=== PATIENT | female | born 1970 | race Caucasian/White ===

== ENCOUNTER 2019-07-25 07:24 | Outpatient (CLI) | payer OTHER, SELFPAY ==
[2019-07-25 08:26] LABS: Basophils Absolute Auto 0.1 K/mm3 (0.0-0.1); Basophils Percent Auto 1.1 % (0.2-1.2); Eosinophils Absolute Auto 0.3 K/mm3 (0-0.3); Eosinophils Percent Auto 4.8 % (0-4.4); Hematocrit 45.3 % (37.0-47.0); Hemoglobin 14.5 g/dL (12.0-15.0); Immature Granulocyte Absolute 0.01 K/mm3 (0.00-0.031); Immature Granulocyte Percent A 0.2 % (0-0.5); Lymphocytes Absolute Auto 1.93 K/mm3 (0.9-3.2); Lymphocytes Percent Auto 34.2 % (18.3-44.2); Mean Corpuscular Hemoglobin 29.4 pg (26-34); Mean Corpuscular Volume 91.7 fl (80-100); Mean Platelet Volume 10.4 fl (7.4-10.4); Monocytes Absolute Auto 0.6 K/mm3 (0.1-0.6); Neutrophils Absolute Auto 2.8 K/mm3 (1.3-6.7); Neutrophils Percent Auto 48.7 % (45.5-73.1); Platelet Count Result 278 k/mm3 (150-375); Red Blood Count 4.94 M/mm3 (4.2-5.4); Red Cell Distribution Width 12.1 % (11.5-14.5); White Blood Count 5.6 K/mm3 (4.5-10.0)
[2019-07-25 08:47] LABS: Alanine Aminotransferase 22 U/L (4-35); Albumin Level 4.3 g/dL (3.5-5.1); Alkaline Phosphatase 101 U/L (38-126); Aspartate Amino Transferase 22 U/L (14-36); Bilirubin,Total 0.4 mg/dL (0.2-1.3); Blood Urea Nitrogen 11 mg/dL (7-17); Calcium 9.5 mg/dL (8.4-10.2); Carbon Dioxide 29 mmol/L (22-30); Chloride 101 mmol/L (98-107); Cholesterol 193 mg/dL (0-200); Estimated Glomerular Filt Rate > 60; Glucose 92 mg/dL (65-105); HDL Direct 48 mg/dL; Magnesium 2.1 mg/dL (1.6-2.3); Potassium 3.8 mmol/L (3.4-5.0); Sodium 139 mmol/L (137-145); Triglycerides 135 mg/dL (<150)
[2019-07-25 08:58] LABS: LDL Cholesterol Direct 117 mg/dL
[2019-07-25 09:15] LABS: Add Urine Microscopic? YES; Appearance Urine Cloudy (Clear); Bacteria Urine Trace /hpf; Bilirubin Urine Negative (Negative); Blood Urine 2+ (Negative); Color Urine Yellow (Yellow); Glucose Urine UA Negative (Negative); Ketones Urine Negative (Negative); Leukocyte Esterase Ur 3+ LEU/UL (Negative); Mucus Urine Rare /lpf; Nitrate Urine Negative (Negative); Protein Urine 1+ mg/dL (Negative); RBC Urine 21-50 /hpf (0-2); Specific Grav Ur 1.019 (1.001-1.035); Squamous Epithelial Cell Urine Many /hpf (Few); Urobilinogen Urine Negative mg/dL (<2.0)
[2019-07-25 09:59] LABS: Hemoglobin A1C 5.9 % (<5.7)
[2019-07-25 10:05] LABS: Vitamin D 25 Hydroxy 32.6 ng/mL
== END 2019-07-25 07:25 | disposition home or self-care (01) ==
PROVIDERS: PCP Family Medicine; Visit Provider Family Medicine
DX: Z00.00 Encounter for general adult medical examination without abnormal findings (principal); M62.830 Muscle spasm of back; E78.5 Hyperlipidemia, unspecified; E55.9 Vitamin D deficiency, unspecified
CPT/HCPCS: 36415; 80053; 80061; 81001; 82306; 83036; 83735; 84443; 85025

== ENCOUNTER 2019-10-25 07:33 | Outpatient (CLI) | payer OTHER, SELFPAY ==
[2019-10-25 08:36] LABS: Add Urine Microscopic? YES; Appearance Urine Cloudy (Clear); Bacteria Urine 1+ /hpf; Bilirubin Urine Negative (Negative); Blood Urine 1+ (Negative); Color Urine Yellow (Yellow); Glucose Urine UA Negative (Negative); Ketones Urine Negative (Negative); Leukocyte Esterase Ur 3+ LEU/UL (Negative); Mucus Urine Rare /lpf; Nitrate Urine Negative (Negative); Protein Urine 1+ mg/dL (Negative); RBC Urine 51-75 /hpf (0-2); Squamous Epithelial Cell Urine Many /hpf (Few); WBC Urine >75 /hpf
[2019-10-25 08:45] LABS: Cholesterol 196 mg/dL (0-200); HDL Direct 54 mg/dL; Triglycerides 144 mg/dL (<150)
[2019-10-25 08:56] LABS: LDL Cholesterol Direct 103 mg/dL
== END 2019-10-25 07:34 | disposition home or self-care (01) ==
PROVIDERS: PCP Family Medicine; Visit Provider Family Medicine
DX: R31.21 Asymptomatic microscopic hematuria (principal); E78.5 Hyperlipidemia, unspecified
CPT/HCPCS: 36415; 80061; 81001; 87086; 87088

== ENCOUNTER 2019-10-30 08:48 | Outpatient (CLI) | payer OTHER, SELFPAY ==
--- NOTE | ~2019-10-30 | XR_ITS ---
XR cervical spine 4-5V DATE: 10/30/2019 09:10 INDICATION: Neck pain, left shoulder pain. TECHNIQUE: AP, open-mouth, lateral, swimmer views COMPARISON: None FINDINGS: There is minimal levoscoliosis of the cervical spine. C1 and C2 are normally aligned and the odontoid process is intact. No fracture or dislocation or locked facet. No prevertebral soft tissue swelling. Cervical interspaces are relatively well preserved. Minimal anterior spurring at C4-5. Incidentally noted are radiopaque sutures of the left upper lung. IMPRESSION: Minimal levoscoliosis of the cervical spine Minimal degenerative change of the cervical spine. Reviewed, dictated and finalized at location A.
--- NOTE | ~2019-10-30 | XR_ITS ---
XR shoulder LT min 2V DATE: 10/30/2019 09:10 INDICATION: Left shoulder joint pain TECHNIQUE: 4 views COMPARISON: None FINDINGS: No fracture or dislocation, periosteal reaction or bone destruction or abnormal soft tissue calcification. Normal alignment at the acromioclavicular and glenohumeral joints. Right opaque sutures overlie the left apical and upper lung zone area. IMPRESSION: Negative left shoulder Reviewed, dictated and finalized at location A. IMPRESSION: Negative left shoulder
== END 2019-10-30 08:49 | disposition home or self-care (01) ==
LOC: ANHIMG 08:54
PROVIDERS: PCP Family Medicine; Visit Provider Family Medicine
DX: M54.2 Cervicalgia (principal); M25.512 Pain in left shoulder; M41.82 Other forms of scoliosis, cervical region
CPT/HCPCS: 72050; 73030

== ENCOUNTER 2020-01-13 07:17 | Outpatient (CLI) | payer OTHER, SELFPAY ==
[2020-01-13 08:22] LABS: Cholesterol 182 mg/dL (0-200); HDL Direct 53 mg/dL; Triglycerides 103 mg/dL (<150)
[2020-01-13 08:39] LABS: LDL Cholesterol Direct 92 mg/dL
== END 2020-01-13 07:18 | disposition home or self-care (01) ==
LOC: ANHLAB 07:18
PROVIDERS: PCP Family Medicine; Visit Provider Family Medicine
DX: E78.5 Hyperlipidemia, unspecified (principal)
CPT/HCPCS: 36415; 80061

== ENCOUNTER 2020-09-09 09:00 | Outpatient (CLI) | payer OTHER, SELFPAY ==
[2020-09-09 09:20] LABS: Basophils Absolute Auto 0.1 K/mm3 (0.0-0.1); Eosinophils Absolute Auto 0.3 K/mm3 (0-0.3); Eosinophils Percent Auto 3.7 % (0-4.4); Hematocrit 44.6 % (37.0-47.0); Hemoglobin 14.7 g/dL (12.0-15.0); Immature Granulocyte Absolute 0.01 K/mm3 (0.00-0.031); Immature Granulocyte Percent A 0.1 % (0-0.5); Lymphocytes Absolute Auto 1.71 K/mm3 (0.9-3.2); Lymphocytes Percent Auto 25.5 % (18.3-44.2); Mean Corpuscular Hemoglobin 29.2 pg (26-34); Mean Corpuscular Volume 88.7 fl (80-100); Mean Platelet Volume 9.8 fl (7.4-10.4); Monocytes Absolute Auto 0.6 K/mm3 (0.1-0.6); Monocytes Percent Auto 9.6 % (2.6-8.5); Neutrophils Percent Auto 60.1 % (45.5-73.1); Platelet Count Result 260 k/mm3 (150-375); Red Blood Count 5.03 M/mm3 (4.2-5.4); Red Cell Distribution Width 12.1 % (11.5-14.5); White Blood Count 6.7 K/mm3 (4.5-10.0)
[2020-09-09 09:35] LABS: Alanine Aminotransferase 18 U/L (4-35); Alkaline Phosphatase 90 U/L (38-126); Anion Gap 4 mmol/L (8-16); Aspartate Amino Transferase 19 U/L (14-36); Bilirubin,Total 0.4 mg/dL (0.2-1.3); Blood Urea Nitrogen 15 mg/dL (7-17); Carbon Dioxide 29 mmol/L (22-30); Chloride 104 mmol/L (98-107); Cholesterol 202 mg/dL (0-200); Estimated Glomerular Filt Rate 58; Glucose 100 mg/dL (65-105); HDL Direct 54 mg/dL; Magnesium 1.9 mg/dL (1.6-2.3); Potassium 4.1 mmol/L (3.4-5.0); Sodium 137 mmol/L (137-145); Triglycerides 112 mg/dL (<150)
[2020-09-09 09:46] LABS: LDL Cholesterol Direct 115 mg/dL
[2020-09-09 09:50] LABS: Hemoglobin A1C 5.4 % (<5.7)
[2020-09-09 09:54] LABS: Add Urine Microscopic? YES; Appearance Urine Clear (Clear); Bacteria Urine Trace /hpf; Bilirubin Urine Negative (Negative); Blood Urine Negative (Negative); Color Urine Yellow (Yellow); Glucose Urine UA Negative (Negative); Ketones Urine Negative (Negative); Leukocyte Esterase Ur 3+ LEU/UL (Negative); Nitrate Urine Negative (Negative); Protein Urine Negative (Negative); Specific Grav Ur 1.015 (1.001-1.035); Squamous Epithelial Cell Urine Moderate /hpf (Few); Urobilinogen Urine Negative mg/dL (<2.0); WBC Urine 31-50 /hpf
[2020-09-09 10:08] LABS: Vitamin D 25 Hydroxy 45.6 ng/mL
== END 2020-09-09 09:01 | disposition home or self-care (01) ==
PROVIDERS: PCP Family Medicine; Visit Provider Family Medicine
DX: Z13.9 Encounter for screening, unspecified (principal); M54.2 Cervicalgia; E66.9 Obesity, unspecified
CPT/HCPCS: 36415; 80053; 80061; 81001; 82306; 83036; 83735; 84443; 85025; 87086; 87088

== ENCOUNTER 2020-09-10 08:53 | Outpatient (CLI) | payer OTHER, SELFPAY ==
--- NOTE | ~2020-09-10 | MM_ITS ---
EXAMINATION: MM screening saul BI w samira HISTORY: Screening mammogram TECHNIQUE: Craniocaudal and mediolateral oblique 3-D tomosynthesis images were obtained and synthetic 2-D images were generated. CAD analysis was submitted and interpreted. COMPARISON: 06/05/2019, 06/01/2018 bilateral digital screening mammogram examinations BREAST PARENCHYMAL COMPOSITION: There are scattered areas of fibroglandular density. FINDINGS: There is no evidence of suspicious mass, calcification, or architectural distortion to sugg est malignancy in either breast. There has been no suspicious interval change. IMPRESSION: 1. No mammographic evidence of malignancy. 2. Recommend routine screening mammography in one year. BI-RADS Category 1: Negative Reviewed, dictated and finalized at location A. 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
== END 2020-09-10 08:54 | disposition home or self-care (01) ==
PROVIDERS: PCP Family Medicine; Visit Provider Family Medicine
DX: Z12.31 Encounter for screening mammogram for malignant neoplasm of breast (principal)
CPT/HCPCS: 77063; 77067

== ENCOUNTER 2020-12-23 08:17 | Outpatient (CLI) | payer OTHER, SELFPAY ==
[2020-12-23 09:14] LABS: Cholesterol 207 mg/dL (0-200); HDL Direct 61 mg/dL; Triglycerides 106 mg/dL (<150)
[2020-12-23 09:26] LABS: LDL Cholesterol Direct 99 mg/dL
== END 2020-12-23 08:18 | disposition home or self-care (01) ==
PROVIDERS: PCP Family Medicine; Visit Provider Family Medicine
DX: E78.5 Hyperlipidemia, unspecified (principal)
CPT/HCPCS: 36415; 80061

== ENCOUNTER 2021-08-22 09:25 | Emergency (ER) | payer OTHER, SELFPAY ==
--- NOTE | ~2021-08-22 | US_ITS ---
EXAMINATION: US venous doppler [facility] DATE: 08/22/2021 10:25 INDICATION: Left leg pain and swelling TECHNIQUE: Wasserman scale images without and with compression and Doppler images of the left lower extrem ity veins were obtained. COMPARISON: None FINDINGS: The left common femoral vein, profunda femoral vein, femoral vein, popliteal vein, peroneal trunk, posterior tibial veins, and greater saphenous vein are patent. There appear to be thrombosed superficial varicose veins at the area of clinical concern. IMPRESSION: 1. Patent left lower extremity veins. No evidence of deep venous thrombosis. 2. Likely thrombosed superficial varicose veins at the site of clinical concern. Reviewed, dictated and finalized at location A. 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 Patent left lower extremity veins. No evidence of deep venous thrombosis. 2. Likely thrombosed superficial varicose veins at the site of clinical concern .
[2021-08-22 09:28] VITALS: BP 171/91; PULSE 88; RESP 16; TEMP 36.2; O2SAT 100
--- NOTE | 2021-08-22 10:00 | PC.NURSE ---
pt. to US
[2021-08-22 11:30] VITALS: BP 128/87; PULSE 88; RESP 19; O2SAT 97
--- NOTE | 2021-08-22 11:34 | ED.EXTPRO ---
HPI - Extremity Problem General Chief complaint: Extremity Problem,Nontraumatic <Leanna Torres APRN - Last Filed: 08/22/21 11:47> Stated complaint: left behind the knee pain, vein redness <Leanna Torres APRN - Last Filed: 08/22/21 11:47> Time Seen by Provider: 08/22/21 09:32 <Leanna Torres APRN - Last Filed: 08/22/21 11:47> Source: patient <Leanna Torres APRN - Last Filed: 08/22/21 11:47> Mode of arrival: ambulatory <Leanna Torres APRN - Last Filed: 08/22/21 11:47> Limitations: no limitations <Leanna Torres APRN - Last Filed: 08/22/21 11:47> History of Present Illness HPI Narrative: 51 year old female presents with complaints of pain to left posterior knee, with swelling, and varicose veins. 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 Patient noted a few days ago that the pain in her legs did not go away after resting. Patient works long hours on her feet and is used to leg pain, but normally it goes away. Patient with concerns of a blood clot in her leg due to family history of blood clots. Patient has no history of blood clots, does not use hormones, has not had any recent long trips, does not need a sedentary lifestyle, but patient does smoke. <Leanna Torres APRN - Last Filed: 08/22/21 11:47> Related Data Home medications: Home Medications Medication Instructions Recorded Confirmed loratadine 10 mg capsule 10 mg PO DAILY 05/30/19 baclofen 10 mg PO DAILY PRN 06/22/19 <Leanna Torres APRN - Last Filed: 08/22/21 11:47> Allergies/Adverse reactions: Allergies Allergy/AdvReac Type Severity Reaction Status Date / Time No Known Allergies Allergy Unverified 06/22/19 01:16 <Leanna Torres APRN - Last Filed: 08/22/21 11:47> Review of Systems Constitutional: Constitutional: Reports as per HPI, Denies chills, Denies fatigue, Denies fever(s) and Denies weakness <Leanna Torres APRN - Last Filed: 08/22/21 11:47> Cardiovascular: Cardiovascular: Reports no additional cardiovascular complaints and Denies chest pain <Leanna Torres APRN - Last Filed: 08/22/21 11:47> Respiratory: Respiratory: Reports no additional respiratory complaints, Denies cough and Denies dyspnea <Leanna Torres APRN - Last Filed: 08/22/21 11:47> Musculoskeletal: Musculoskeletal: Reports as per HPI <Leanan Torres APRN - Last Filed: 08/22/21 11:47> PMF Past Medical History Medical History: Medical History (Updated 08/22/21 @ 11:38 by Leanna Torres APRN) Anemia Anxiety Arthritis COPD (chronic obstructive pulmonary disease) Depression Eczema Emphysema of lung HTN (hypertension) Hyperlipidemia Lung cancer Vitamin D deficiency disease <Leanna Torres APRN - Last Filed: 08/22/21 11:47> Surgical History Surgical History: Surgical History H/O tubal ligation History of cholecystectomy History of lung surgery lower left lobectomy Previous section x2 <Leanna Torres APRN - Last Filed: 08/22/21 11:47> Family History Family History: Family History (Updated 08/22/21 @ 11:39 by Leanna Torres APRN) Sibling Family history of lung cancer, Onset Age: 50 DVT (deep venous thrombosis) Mother Family history of chronic obstructive pulmonary disease Other Diabetes mellitus Hypertension <Leanna Torres APRN - Last Filed: 08/22/21 11:47> Social History Social History: Social History Smoking status: Heavy tobacco smoker Alcohol intake: current Gender identity (if verbalized by the patient): Female <Leanna Torres APRN - Last Filed: 08/22/21 11:47> Exam Const: General: no acute distress and alert <Leanna Torres APRN - Last Filed: 08/22/21 11:47> Orientation/consciousness: patient oriented x3 <Leanna Torres APRN - Last Filed: 02/18/22 11:47> HENMT: Head: normal to
== END 2021-08-22 11:30 | disposition home or self-care (01) ==
PROVIDERS: Emergency Provider Nurse Practitioner Family; PCP Family Medicine
DX: I80.02 Phlebitis and thrombophlebitis of superficial vessels of left lower extremity (principal); J43.9 Emphysema, unspecified; E78.5 Hyperlipidemia, unspecified; I10 Essential (primary) hypertension; M19.90 Unspecified osteoarthritis, unspecified site; E55.9 Vitamin D deficiency, unspecified; Z90.2 Acquired absence of lung [part of]; Z85.118 Personal history of other malignant neoplasm of bronchus and lung; F17.200 Nicotine dependence, unspecified, uncomplicated
CPT/HCPCS: 93971; 99284

== ENCOUNTER 2021-09-08 10:03 | Outpatient (CLI) | payer OTHER, SELFPAY ==
[2021-09-08 10:39] LABS: Basophils Absolute Auto 0.1 K/mm3 (0.0-0.1); Basophils Percent Auto 1.1 % (0.2-1.2); Eosinophils Absolute Auto 0.2 K/mm3 (0-0.3); Eosinophils Percent Auto 3.1 % (0-4.4); Hematocrit 46.3 % (37.0-47.0); Hemoglobin 14.8 g/dL (12.0-15.0); Immature Granulocyte Absolute 0.01 K/mm3 (0.00-0.031); Immature Granulocyte Percent A 0.2 % (0-0.5); Lymphocytes Absolute Auto 1.81 K/mm3 (0.9-3.2); Lymphocytes Percent Auto 29.5 % (18.3-44.2); Mean Corpuscular Hemoglobin 29.7 pg (26-34); Mean Platelet Volume 10.5 fl (7.4-10.4); Monocytes Absolute Auto 0.7 K/mm3 (0.1-0.6); Monocytes Percent Auto 11.4 % (2.6-8.5); Neutrophils Absolute Auto 3.4 K/mm3 (1.3-6.7); Neutrophils Percent Auto 54.7 % (45.5-73.1); Platelet Count Result 258 k/mm3 (150-375); Red Blood Count 4.98 M/mm3 (4.2-5.4); White Blood Count 6.1 K/mm3 (4.5-10.0)
[2021-09-08 10:44] LABS: Add Urine Microscopic? YES; Appearance Urine Cloudy (Clear); Bilirubin Urine Negative (Negative); Blood Urine Negative (Negative); Color Urine Yellow (Yellow); Glucose Urine UA Negative (Negative); Ketones Urine Negative (Negative); Leukocyte Esterase Ur 3+ LEU/UL (Negative); Mucus Urine Rare /lpf; Nitrate Urine Negative (Negative); Protein Urine Negative (Negative); Specific Grav Ur 1.016 (1.001-1.035); Squamous Epithelial Cell Urine Moderate /hpf (Few); Urobilinogen Urine Negative mg/dL (<2.0); WBC Urine 31-50 /hpf
[2021-09-08 10:48] LABS: Alanine Aminotransferase 15 U/L (4-35); Albumin Level 4.3 g/dL (3.5-5.1); Alkaline Phosphatase 101 U/L (38-126); Anion Gap 7 mmol/L (8-16); Aspartate Amino Transferase 21 U/L (14-36); Bilirubin,Total 0.5 mg/dL (0.2-1.3); Blood Urea Nitrogen 11 mg/dL (7-17); Carbon Dioxide 27 mmol/L (22-30); Chloride 104 mmol/L (98-107); Cholesterol 209 mg/dL (0-200); Estimated Glomerular Filt Rate > 60; Glucose 96 mg/dL (65-110); HDL Direct 54 mg/dL; Potassium 3.9 mmol/L (3.4-5.0); Sodium 138 mmol/L (137-145); Triglycerides 125 mg/dL (<150)
[2021-09-08 10:51] LABS: Hemoglobin A1C 5.2 % (<5.7)
[2021-09-08 10:59] LABS: LDL Cholesterol Direct 105 mg/dL
[2021-09-08 11:15] LABS: Vitamin D 25 Hydroxy 29.5 ng/mL
== END 2021-09-08 10:04 | disposition home or self-care (01) ==
LOC: ANHLAB 10:06
PROVIDERS: PCP Family Medicine; Visit Provider Family Medicine
DX: Z00.00 Encounter for general adult medical examination without abnormal findings (principal); M54.2 Cervicalgia; E66.9 Obesity, unspecified
CPT/HCPCS: 36415; 80053; 80061; 81001; 82306; 83036; 84443; 84550; 85025; 87086; 87088

== ENCOUNTER 2022-02-05 08:42 | Outpatient (CLI) | payer OTHER, SELFPAY ==
[2022-02-05 10:01] LABS: Cholesterol 159 mg/dL (0-200); HDL Direct 52 mg/dL; Triglycerides 82 mg/dL (<150)
[2022-02-05 10:12] LABS: LDL Cholesterol Direct 71 mg/dL
== END 2022-02-05 08:43 | disposition home or self-care (01) ==
LOC: ANHLAB 08:52
PROVIDERS: PCP Family Medicine; Visit Provider Family Medicine
DX: E78.5 Hyperlipidemia, unspecified (principal)
CPT/HCPCS: 36415; 80061

== ENCOUNTER 2023-09-16 08:29 | Outpatient (CLI) | payer OTHER, SELFPAY ==
[2023-09-16 09:07] LABS: Alanine Aminotransferase 16 U/L (6-35); Alkaline Phosphatase 83 U/L (38-126); Anion Gap 2 mmol/L (8-16); Aspartate Amino Transferase 22 U/L (14-36); Bilirubin,Total 0.7 mg/dL (0.2-1.3); Blood Urea Nitrogen 11 mg/dL (7-17); Calcium 9.1 mg/dL (8.4-10.2); Carbon Dioxide 29 mmol/L (22-30); Chloride 105 mmol/L (98-107); Cholesterol 156 mg/dL (0-200); Estimated Glomerular Filt Rate > 60; Glucose 91 mg/dL (65-110); HDL Direct 61 mg/dL; Potassium 3.7 mmol/L (3.4-5.0); Sodium 136 mmol/L (137-145); Triglycerides 79 mg/dL (<150)
[2023-09-16 09:18] LABS: LDL Cholesterol Direct 84 mg/dL
[2023-09-16 09:24] LABS: Basophils Absolute Auto 0.1 K/mm3 (0.0-0.1); Basophils Percent Auto 1.1 % (0.2-1.2); Eosinophils Absolute Auto 0.2 K/mm3 (0-0.3); Eosinophils Percent Auto 3.8 % (0-4.4); Hematocrit 46.3 % (37.0-47.0); Hemoglobin 14.7 g/dL (12.0-15.0); Immature Granulocyte Absolute 0.01 K/mm3 (0.00-0.031); Immature Granulocyte Percent A 0.2 % (0-0.5); Lymphocytes Absolute Auto 1.69 K/mm3 (0.9-3.2); Lymphocytes Percent Auto 30.5 % (18.3-44.2); Mean Corpuscular HGB Conc 31.7 g/dl (32-36); Mean Corpuscular Hemoglobin 29.5 pg (26-34); Mean Corpuscular Volume 92.8 fl (80-100); Mean Platelet Volume 10.1 fl (7.4-10.4); Monocytes Absolute Auto 0.6 K/mm3 (0.1-0.6); Monocytes Percent Auto 10.1 % (2.6-8.5); Neutrophils Percent Auto 54.3 % (45.5-73.1); Platelet Count Result 245 k/mm3 (150-375); Red Blood Count 4.99 M/mm3 (4.2-5.4); Red Cell Distribution Width 12.1 % (11.5-14.5); White Blood Count 5.6 K/mm3 (4.5-10.0)
== END 2023-09-16 08:30 | disposition home or self-care (01) ==
LOC: ANHLAB 08:30
PROVIDERS: PCP Family Medicine; Visit Provider Family Medicine
DX: I10 Essential (primary) hypertension (principal); E78.2 Mixed hyperlipidemia
CPT/HCPCS: 36415; 80053; 80061; 85025

== ENCOUNTER 2024-01-10 14:12 | Outpatient (CLI) | payer OTHER, SELFPAY ==
--- NOTE | ~2024-01-10 | MM_ITS ---
EXAMINATION: MM screening saul BI w samira HISTORY: Screening TECHNIQUE: Craniocaudal and mediolateral oblique 3-D tomosynthesis images were obtained and synthetic 2-D images were generated. CAD analysis was submitted and interpreted. COMPARISON: Comparison to multiple prior studies sequentially, with oldest reviewed study dated 05/06. BREAST PARENCHYMAL COMPOSITION: Not dense: There are scattered areas of fibroglandular density. FINDINGS: There is no evidence of suspicious mass, calcification, or architectural distortion to sugg est malignancy in either breast. There has been no suspicious interval change. IMPRESSION: 1. No mammographic evidence of malignancy. 2. Recommend routine screening mammography in one year. BI-RADS Category 1: Negative Reviewed, dictated and finalized at location B.
== END 2024-01-10 14:13 | disposition home or self-care (01) ==
LOC: ANHIMG 14:13
PROVIDERS: PCP Family Medicine; Visit Provider Family Medicine
DX: Z12.31 Encounter for screening mammogram for malignant neoplasm of breast (principal)
CPT/HCPCS: 77063; 77067

== ENCOUNTER 2025-01-17 09:39 | Outpatient (CLI) | payer OTHER, SELFPAY ==
--- OUTSIDE RECORDS SUMMARY | 2025-01-17 09:43 | XMS_ITS | Clinical Summary ---
Author Organization [facility] Address [address] [place] [address] Care Team Providers Care Patient Services Technician Name Role Phone Jarrell Cornejo MD Primary Care Provider [phone] Allergies No known active allergies Medications lisinopril (PRINIVIL,ZESTRI L) 20 mg tablet Take 20 mg by mouth daily Active Active Problems No known active problems Encounters Date Type Department Care Team Description 11/29/2024 Orders Only [facility] Surgery [address] [facility] [address] [place] [id number] Carroll Salcido MD Lung nodule (Primary Dx) from Last 3 Months Family History Medical History Relation Name Comments COPD Mother Family history of chronic obstructive pulmonary disease - (Added by TW Conv) Heart failure Mother Family history of congestive heart failure - (Added by TW Conv) Relation Name Status Comments Mother Social History Tobacco Use Types Packs/Day Years Used Date Smoking Tobacco: Every Day Personal Safety Answer Date Recorded Getting School Help Needed Not on file 09/03 Comments Unknown Sex and Gender Information Value Date Recorded Sex Assigned at Not on file 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 Gender Identity Not on file Sexual Orientation Not on file Obstetrics History Last Filed Vital Signs Vital Sign Reading Time Taken Comments Blood Pressure 138/91 02/01/2024 12:05 PM CDT Pulse 80 02/01/2024 12:05 PM CDT Temperature 36.7 C (98 F) 07/30/2020 2:47 PM 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 Respiratory Rate 14 02/01/2024 12:05 PM CDT Oxygen Saturation 96% 02/01/2024 12:05 PM CDT Inhaled Oxygen Concentration - - Weight 104.3 kg (230 lb) 02/01/2024 12:05 PM CDT Height 170.2 cm (5' 7) 02/01/2024 12:05 PM CDT Body Mass Index 36.02 02/01/2024 12:05 PM CDT Plan of Treatment Health Maintenance Due Date Last Done Comments Breast Cancer Screening-Mammogram 1968 Cervical Cancer Screening 1968 Colon Cancer Screening-Colonoscopy 1968 Depression Screening 1968 Hepatitis C Screening 1968 Hepatitis B Screening 1986 Regular Well Visit/Exam 18-64 1986 Pneumococcal vaccine <65 (1 of 2 - PCV) 1987 Zoster Vaccine (1 of 2) 2018 Influenza Vaccine (Season Ended) 2025 04/06/2019, 04/29/2018, 04/22/2017, Additional history exists DTaP/Tdap/Td Vaccine (2 - Td or Tdap) 07/17/2029 07/17/2019 Insurance [facility] [employer] [facility] CIGNA CIGNA OPEN ACCESS CIGNA Care Teams Patient Services Technician Relationship Specialty Start Date End Date Jarrell Cornejo MD [address] [place] [address] PCP - General 01/30/20
--- OUTSIDE RECORDS SUMMARY | 2025-01-17 09:43 | XMS_ITS | Clinical Summary ---
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 Name Role Phone Unavailable Primary Care Provider Unavailabl e Social History Tobacco Use Types Packs/Day Years Used Date Smoking Tobacco: Never Assessed Comments Unknown Sex and Gender Information Value Date Recorded Sex Assigned at Not on file Legal Sex Female 11:57 AM CDT Gender Identity Not on file Sexual Orientation Not on file Plan of Treatment Health Maintenance Due Date Last Done Comments DTAP/TDAP/TD VACCINES (1 - Tdap) 1987 HEPATITIS B VACCINES (1 of 3 - 19+ 3-dose series) 08/1986 HPV/Cotest (21-29) 1989 CERVICAL CANCER SCREENING 1998 HPV/Cotest (30-65) 1998 PAP SMEAR 1998 BREAST CANCER SCREENING 2008 COLORECTAL SCREENING 2013 Colorectal Cancer Screening 2013 FIT-DNA Q 3 years 2013 FIT/FOBT Q 1 year 2013 Flex Sig/CT Colonography Q 5 years 2013 ZOSTER VACCINE (1 of 2) 2018 INFLUENZA VACCINE (#1) 2025
--- OUTSIDE RECORDS SUMMARY | 2025-01-17 09:43 | XMS_ITS | Data Portability ---
Author Organization ARNULFO JUAN JOSÉAlden Cortes Address [address] [place] [address] Assessment No assessment recorded. Plan of Treatment Reminders Order Date Submit Date Provider Last Modified By Organization Details Last Modified Time Details Appointments None recorded. Lab TSH + free T4, serum 2017 018 [facility], [address] [facility] [address], [place], [address], 8 17:25:57 HbA1c (hemoglobi n A1c), blood 2017 018 [facility], [address] [facility] [address], [place], [address], 8 17:25:57 vitamin D, 25-hydroxy , total, serum 2017 018 [facility], [address] [facility] [address], [place], [address], 8 17:25:57 CMP, serum or plasma 2017 018 [email or web address], [address] [facility] [address], [place], [address], 8 14:30:43 lipid panel, serum 2017 018 [facility]AL [facility], [address] [facility] [address], [place], [address], 8 09:53:39 CK (creatine kinase), total, serum 2017 018 [facility], [address] [facility], [address], [place], [address], 8 09:53:37 culture, urine 2016 017 [facility], [address] [facility], [address], [place], [address], 7 06:39:57 urinalysis , dipstick 2016 017 [email or web address] In-Office Order, Internal Use Only DO Not Attach Compendium DO Not Attach Compendium, Do Not Delete/merge, [id number] 7 11:54:24 Referral physical therapist referral - gave patient a copy of referral. no need a referral at this time. Thank you. 2016 017 [email or web address] [facility], [address] [place], [address], 7 09:53:25 Procedures None recorded. Surgeries None recorded. Imaging CT, kidney, w/o contrast 2016 017 [facility], [address] [place] [address] [address], [address], 7 17:47:00 Medication Orders ibuprofen 800 mg tablet 2017 018 INTERFACE [facility], [address] [facility], [place], [address], 8 09:54:08 promethazi ne-DM 6.25 mg-15 mg/5 mL oral syrup 2017 018 INTERFACE [facility], [address] [facility], [place], [address], 8 09:53:36 azithromyc in 250 mg tablet 2017 018 [facility], [address] [place], [address], 8 09:53:35 Flovent HFA 110 mcg/actuat ion aerosol inhaler 2017 018 [facility], [address] [place], [address], 8 12:41:56 azithromyc in 250 mg tablet 2017 018 [facility], [address] [place], [address], 8 12:40:32 promethazi ne-DM 6.25 mg-15 mg/5 mL oral syrup 2017 018 [facility], [address] [place], [address], 8 12:41:09 loratadine 10 mg tablet 2016 017 [facility], [address] [place], [address], 7 11:28:33 trazodone 50 mg tablet 2016 017 [facility], [address] [place], [address], 7 11:28:34 lisinopril 20 mg tablet 2016 017 [facility], [address] [place], [address], 7 11:28:35 pravastati n 40 mg tablet 2016 017 [facility], [address] [place], [address], 7 11:28:34 ciprofloxa michael 500 mg tablet 2016 017 INTERFACE [facility], [address] [place], [address], 7 11:54:57 phenazopyr idine 200 mg tablet 2016 017 INTERFACE [facility] [address], [address] [place], [address], 7 11:55:45 trazodone 50 mg tablet 2016 017 INTERFACE [facility] [address], [address] [place], [address], 7 15:44:05 diclofenac 1 % topical gel 2016 017 [email or web address] [facility] [address], [address] [place], [address], 7 12:33:05 baclofen 10 mg tablet 2016 017 [facility] [address], [address] [place], [address], 7 09:54:18 triamcinol one acetonide 0.1 % topical ointment 2016 017 [facility], [address] [place], [address], 7 14:10:07 Patient TargetsNo targets recorded. Patient InstructionsNo instructions recorded. Reason for Referral gave patient a copy of refer ral. no need a referral at this time. Thank you. Referring Physician: Edwin Lee, Family Medicine, Encounter Date: 12/31/2016 Results Created Date Observation Date Name Description Value Unit Range Abnormal Flag Note LastModifiedBy Organization Detail LastModifiedTime 03/04/20 17 03/04/2017 urina lysis , dipst ick Leukocytes Trace Not Available In-Offi ce Order Internal Use Only DO Not Attach Compendium DO Not Attach Compendium, Do Not Delete/merge, [id number] 03/04/2017 11:36:34 03/04/2003/04/2017 urina lysis , dipst ick Nitrite negati ve Not Available In-Office Order Internal Use Only DO Not Attach Compendium DO Not Attach Compendium, Do Not Delete/merge, [id number] 03/04/2017 11:36:34 03/04/2003/04/2017 urina lysis , dipst ick Urobilinogen .2 Not Available In-Of fice Order Internal Use Only DO Not Attach Compendium DO Not Attach Compendium, Do Not Delete/merge, [facility] 03/04/2017 11:36:34 03/04/2003/04/2017 urina lysis , dipst ick Protein Negati ve Not Available In-Office Order Internal Use Only DO Not Attach Compendium DO Not Attach Compendium, Do Not Delete/merge, [id number] 03/04/2017 11:36:34 03/04/2003/04/2017 urina lysis , dipst ick pH 5.5 Not Available In-Office Order Internal Use Only DO Not Attach Compendium DO Not Attach Compendium, Do Not Delete/merge, [facility] 03/04/2017 11:36:34 03/04/2003/04/2017 urina lysis , dipst ick Blood Negati ve Not Available In-Office Order Internal Use Only DO Not Attach Compendium DO Not Attach Compendium, Do Not Delete/merge, [facility] 03/04/2017 11:36:34 03/04/2003/04/2017 urina lysis , dipst ick Specific [place] 1.015 Not Available In-Off ice Order Internal Use Only DO Not Attach Compendium DO Not Attach Compendium, Do Not Delete/merge, [facility] 03/04/2017 11:36:34 03/04/2003/04/2017 urina lysis , dipst ick Ketone Negati ve Not Available In-Office Order Internal Use Only DO Not Attach Compendium DO Not Attach Compendium, Do Not Delete/merge, [id number] 03/04/2017 11:36:34 03/04/2003/04/2017 urina lysis , dipst ick Bilirubin Negati ve Not Available In-Office Order Internal Use Only DO Not Attach Compendium DO Not Attach Compendium, Do Not Delete/merge, [id number] 03/04/2017 11:36:34 03/04/20 17 03/04/2017 urina lysis , dipst ick Glucose Negati ve Not Available In-Office Order Internal Use Only DO Not Attach Compendium DO Not Attach Compendium, Do Not Delete/merge, [id number] 03/04/2017 11:36:34 03/04/20 17 03/04/2017 urina lysis , dipst ick Appearance Clear Not Available In-Offi ce Order Internal Use Only DO Not Attach Compendium DO Not Attach Compendium, Do Not Delete/merge, [id number] 03/04/2017 11:36:34 03/04/20 17 03/04/2017 urina lysis , dipst ick Color Yellow Not Available In-Office Order Internal Use Only DO Not Attach Compendium DO Not Attach Compendium, Do Not Delete/merge, [id number] 03/04/2017 11:36:34 03/04/20 17 03/06/2017 cultu re, urine urine culture,comp rehensive FINAL REPORT Not Available [facility] ([facility]) [address], [place], [place], [address], 03/07/2017 06:39:57 03/04/20 17 03/06/2017 cultu re, urine result 1 COMMEN T MIXED UROGE NITAL CYNTHIA 25,00 0-50, 000 COLON Y FORMI NG UNITS PER ML Not Available [facility] ([facility]) [address], [place], [place], [address], 03/07/2017 06:39:57 02/26/20 17 [place], gallb ladde r No observ ation record ed. [email or web address] Not Available 02/03 20:37:55 03/22/[address], abdom en + pelvi s, w/ contr ast No observ ation record ed. [email or web address] Not Available 03/05 21:15:52 Result Notes None recorded. Problems Name Problem SNOMED Code Status Onset Date Resolution Date Notes Provider Name and Address Organization Details Recorded Time Acute bronchitis 92465000 Active 2017 Edmónica Lee PA-C Attn: Alana g,[address] [facility], [place], [place], [address] [place] [address] 2, [place] - [facility] 8 12:40:01 Numbness of finger 976971140 Active Edwin Lee PA-C Attn: Accountin g,[address] [facility], [place], [place], [address] [place] [address], [place] [facility] 5 15:39:53 Obesity 896732328 Active Edwin Lee PA-C Attn: Accountin g,[address] [facility], [place], [address] [place] [address], [place] [facility] 6 12:49:59 Vitamin D deficiency 19476669 Active Edwin Lee PA-C Attn: Accountin g,[address] [facility], [place], [place], [address] [place] [address] 2, [facility] - [facility] 6 12:49:59 Tobacco user 782921403 Active Edwin Lee PA-C Attn: Accountin g,[address] [facility], [place], [place], [address] [place] [address], [place] [facility] 6 12:49:59 Hyperlipide lobo 67703118 Active Edwin Lee PA-C Attn: Accountin g,[address] [facility], [place], [place], [address] [place] [address], [place] [facility] 6 12:49:59 Anemia 555394518 Active Edwin Lee PA-C Attn: Accountin g,[address] [facility], [place], [place], [address] [place] [address], [place] [facility] 6 12:49:59 Acute urinary tract infection 231774328 Active Edwin Lee PA-C Attn: Accountin g,[address] [facility], [place], [place], [address] [place] [address] 2, [place] [facility] 5 20:54:30 Anxiety 23826138 Active Edwin Lee PA-C Attn: Accountin g,[address] [facility], [place], [place], [address] [place] [address], [place] [facility] 6 12:49:59 Panic disorder 665330589 Active Edwin Lee PA-C Attn: Accountwiliam g,[address] [place], [address], [place] - [facility] 6 10:37:09 Pneumonia 440128252 Active Lisette Ledezma LPN null, [place] [facility] 5 13:48:35 Low back pain 327274805 Active Edwin Lee PA-C Attn: Accountin g,[address] [place], [address], [place] [facility] 6 12:49:59 Essential hypertensio n 97534108 Active Edwin Lee PA-C Attn: Accountwiliam g,[address] [place], [address], [place] [facility] 6 12:49:59 Lung mass 639881908 Active Kamilla Spencer MD Attn: Accountin g,[address] [place], [address], [place] [facility] 5 13:20:12 Chronic obstructive pulmonary disease 07817966 Active Edwin Lee PA-C Attn: Accountwiliam g,[address] [place], [address], [place] [facility] 6 12:49:59 Upper respiratory infection 55261766 Active 2016 Edwin Lee PA-C Attn: Accountwiliam g,[address] [place], [address], [place] [facility] 7 12:06:42 Acute otitis media 9743311 Active 2016 Edwin Lee PA-C Attn: Accountwiliam g,[address] [place], [address], [place] [facility] 7 10:01:32 Acute pharyngitis 877260634 Active 2016 Edwin Lee PA-C Attn: Accountwiliam g,[address] [place], [address], [place] [facility] 7 10:01:47 Allergic rhinitis 67664224 Active 2016 Edwin Lee PA-C Attn: Alana ruiz,[address] [place], [address], [place] [facility] 7 10:03:42 Strain of right trapezius muscle 9068257987752 9100 Active 2016 Edwin Lee PA-C Attn: Alana ruiz,[address] [place], [address], [place] [facility] 7 09:52:41 Eczema 30616931 Active 2016 Edwin Lee PA-C Attn: Alana ruiz,[address] [place], [address], [place] [facility] 7 09:57:59 Right flank pain 115673023 Active 2016 Edwin Lee PA-C Attn: Alana ruiz,[address] [place], [address], [place] [facility] 7 11:36:21 Insomnia 749180335 Active 2016 Edwin Lee PA-C Attn: Alana ruiz,[address] [place], [address], [place] [facility] 7 11:39:47 Administrat ion of influenza vaccine Active 2016 Edwin Lee PA-C Attn: Alana ruiz,[address] [place], [address], [place] [facility] 7 11:23:03 Problem Notes None recorded. Medical Equipment None Reported. Allergies No known drug allergies Medications Name Sig Start Date Stop Date Status Note LastModified by Organization Details LastModified Time cyclobenzapr ine 10 mg tablet Take 1 tablet every day by oral route at bedtime for 30 days. 2015 active Not Available Not Available Not Avai lable amoxicillin 500 mg capsule active Not Available Not Available Not Available buspirone 5 mg tablet Take 1 tablet twice a day by oral route after meals for 30 days. 2014 active Not Available Not Available Not Avai lable Qvar 80 mcg/actuatio n Metered Aerosol oral inhaler Inhale 2 puffs twice a day by inhalation route as needed for 30 days. 2017 active Not Available Not Available Not Avai lable promethazine -DM 6.25 mg-15 mg/5 mL oral syrup Take 5 mL every 6 hours by oral route as needed for 10 days. active Not Available Not Available No t Available Colace 100 mg capsule Take 1 capsule twice a day by oral route as needed. 2014 active Not Available Not Available Not Avai lable trazodone 50 mg tablet Take 1 tablet as needed by oral route at bedtime for 30 days. 2016 active Not Available Not Available Not Avai lable azithromycin 250 mg tablet TAKE 2 TABLETS (500 MG) BY ORAL ROUTE ONCE DAILY FOR 1 DAY THEN 1 TABLET (250 MG) BY ORAL ROUTE ONCE DAILY FOR 4 DAYS active Not Available Not Available No t Available pravastatin 40 mg tablet TAKE 1 TABLET BY MOUTH ONCE DAILY AT SUPPER 2017 active Not Available Not Available Not Avai lable ibuprofen 800 mg tablet Take 1 tablet 3 times a day by oral route as needed for 30 days. active Not Available Not Available No t Available hydrocodone 5 mg-acetamino phen 325 mg tablet active Not Available Not Available Not Available phenazopyrid ine 200 mg tablet Take 1 tablet 3 times a day by oral route for 2 days. active Not Available Not Available No t Available lisinopril 20 mg tablet TAKE ONE TABLET BY MOUTH ONCE DAILY active Not Available Not Available No t Available ciprofloxaci n 500 mg tablet Take 1 tablet every 12 hours by oral route for 10 days. active Not Available Not Available No t Available amoxicillin 500 mg tablet Take 2 tablets every 12 hours by oral route for 10 days. 2016 active Not Available Not Available Not Avai lable ketorolac 10 mg tablet active Not Available Not Available No t Available oxycodone-ac etaminophen 5 mg-325 mg tablet active Not Available Not Available Not Available amoxicillin 875 mg tablet active Not Available Not Available Not Available alprazolam 0.25 mg tablet active Not Available Not Available Not Available famotidine 20 mg tablet active Not Available Not Available Not Available baclofen 10 mg tablet TAKE ONE TABLET BY MOUTH THREE TIMES DAILY NEEDED DISCONTINUE THE CYCLOBENZAP RINE FOR NOW 08/29/ 2018 active Not Available Not Available Not Avai lable ferrous sulfate 325 mg (65 mg iron) tablet TAKE ONE TABLET BY MOUTH TWICE DAILY WITH MEALS active Not Available Not Available No t Available triamcinolon e acetonide 0.1 % topical ointment APPLY A THIN LAYER TO THE AFFECTED AREA(S) BY TOPICAL ROUTE 2 TIMES PER DAY active Not Available Not Available No t Available nicotine 21 mg/24 hr daily transdermal patch Apply 1 patch every day by transdermal route for 30 days. active Not Available Not Available No t Available gabapentin 300 mg capsule TAKE 3 CAPSULES BY MOUTH EVERY NIGHT AT BEDTIME active Not Available Not Available No t Available Proventil HFA 90 mcg/actuatio n aerosol inhaler active Not Available Not Available Not Available ibuprofen 600 mg tablet active Not Available Not Available Not Available levofloxacin 750 mg tablet Take 1 tablet every day by oral route for 10 days. active Not Available Not Available No t Available fluticasone propionate 50 mcg/actuatio n nasal spray,suspen jarred [place] 1 spray twice a day by intranasal route for 30 days. active Not Available Not Available No t Available lisinopril 2.5 mg tablet 1 tab po qd active Not Available Not Available Not Available azithromycin 500 mg tablet Take 1 tablet every day by oral route for 5 days. active Not Available Not Available No t Available Allergy Relief (loratadine) 10 mg tablet TAKE ONE TABLET BY MOUTH ONCE DAILY IN THE MORNING 2017 active Not Available Not Available Not Avai lable nitrofuranto in monohydrate/ macrocrystal s 100 mg capsule active Not Available Not Available Not Available Flovent HFA 110 mcg/actuatio n aerosol inhaler 2017 active Not Available Not Available Not Avai lable diclofenac 1 % topical gel APPLY 2 GRAM TO THE AFFECTED AREA(S) BY TOPICAL ROUTE 4 TIMES PER DAY active Not Available Not Available No t Available Anoro Ellipta 62.5 mcg-25 mcg/actuatio n powder for inhalation Inhale 1 inhalation by inhalation route in the morning. 2016 active Not Available Not Available Not Avai lable Vitals Date Recorded Body height Body mass index (BMI) Body weight Oxygen saturation Oxygen saturation in Arterial blood by Pulse oximetry Heart rate Body temperature Systolic And Diastolic Provider Name and Address Organization Details Last Updated DateTime 8 168.91 cm 38 kg/m2 629922. 58 g 97 % 97 % 88 /min 98.3 [degF] 128/66 mm[Hg] Katrin ANDREI Bourgeois [facility] 8 12:25:22 Date Recorded Body height Body mass index (BMI) Body weight Oxygen saturation Oxygen saturation in Arterial blood by Pulse oximetry Heart rate Body temperature Systolic And Diastolic Provider Name and Address Organization Details Last Updated DateTime 8 168.91 cm 37.3 kg/m2 696088. 41 g 95 % 95 % 104 /min 97.9 [degF] 124/80 mm[Hg] Che Delgado MA [facility] 8 09:37:42 Date Recorded Body height Body mass index (BMI) Body weight Oxygen saturation Oxygen saturation in Arterial blood by Pulse oximetry Heart rate Body temperature Systolic And Diastolic Provider Name and Address Organization Details Last Updated DateTime 7 168.91 cm 37.4 kg/m2 101847. 01 g 97 % 97 % 74 /min 98.6 [degF] 126/82 mm[Hg] Che Delgado MA [facility] 7 09:41:19 Date Recorded Body height Body mass index (BMI) Body weight Oxygen saturation Oxygen saturation in Arterial blood by Pulse oximetry Heart rate Body temperature Systolic And Diastolic Provider Name and Address Organization Details Last Updated DateTime 7 168.91 cm 37.6 kg/m2 197535. 99 g 97 % 97 % 76 /min 98 [degF] 114/70 mm[Hg] Che Delgado MA [facility] 7 11:18:09 Date Recorded Body height Body mass index (BMI) Body weight Oxygen saturation Oxygen saturation in Arterial blood by Pulse oximetry Heart rate Body temperature Systolic And Diastolic Provider Name and Address Organization Details Last Updated DateTime 7 168.91 cm 38.6 kg/m2 535711. 95 g 97 % 97 % 77 /min 98 [degF] 110/84 mm[Hg] Che Delgado MA [facility] 7 11:11:38 Social History Question Answer Notes LastModified by Organizat ion Details LastModified Time Tobacco Smoking Status Current Every Day Smoker cigarettes -- pack a day ANDREI Trejo, [facility] 10/04/2014 15:22:18 How Many Years Have You Smoked Tobacco? 30 [email or web address] Information not available 10/04/2014 Sex: Unknown Functional Status None recorded. Mental Status None recorded. Family History Relationship Description Onset Age of this Age Resolved Age Notes LastModified by Organization Details LastModified Time Father Diabetes mellitus 63 cirrho sis [email or web address] Not available 10/01/2015 10:39:33 Mother Hypertensive disorder 70 chf, kidney failur e [email or web address] Not available 10/01/2015 10:39:33 Medical History No medical history recorded. Gynecological HistoryNo gynecological history recorded. Obstetrics History GPAL:G 0 P 0 0 0 0 Immunizations Vaccine Type Date Status Note Provider Nam e and Address Organization Details Recorded Time Influenza, split virus, quadrivalent, preservative 6 completed Not Available [facility] 07/22/2019 02:48:36 Influenza, split virus, quadrivalent, preservative 7 completed Not Available [facility] 07/22/2019 02:34:24 Influenza, split virus, quadrivalent, preservative 5 completed Not Available [facility] 07/22/2019 02:32:10 Past Encounters Encounter ID Performer Location Encounter Start Date Encounter Closed Date Diagnosis/Indication Diagnosis SNOMED-CT Code Diagnosis ICD10 Code Diagnosis Note [id number] KELECHI Betancourt (Adult Med) [address] [place] [id number] 10/04/2014 15:07:56 10/04/2014 15:43:41 Numbness of finger 201427093 Obesity 965257969 Vitamin D deficiency 84494208 Tobacco user 330185556 Hyperlipidemia 61473227 Anemia 925515602 [id number] KELECHI Betancourt (Adult Med) [address] [place] [id number] 12/06/2014 10:04:38 12/06/2014 11:00:42 Acute urinary tract infection 144850178 Hyperlipidemia 96672543 Obesity 617712537 Tobacco user 237367424 Vitamin D deficiency 56232350 Anxiety 55364854 Panic disorder 592422392 [id number] KELECHI Betancourt (Adult Med) [address] [place] [phone] 01/31/2015 12:12:49 01/31/2015 17:25:30 Pneumonia 631758631 Low back pain 404298572 [id number] [facility] [address] [place] [id number] 03/07/2015 10:06:51 03/07/2015 11:01:48 Anemia 579700731 Anxiety 99624378 Hyperlipidemia 28157350 Low back pain 488280785 Pneumonia 529979982 Tobacco user 337747181 Vitamin D deficiency 44937461 Essential hypertension 66692237 [id number] MD Stanislav Kumar (Adult Med) [address] [place] [id number] 05/07/2015 09:47:15 05/08/2015 13:55:25 Administration of influenza vaccine 69512878 Z23 Essential hypertension 19845081 I10 Hyperlipidemia 87231432 E78.5 Low back pain 854868824 M54.5 Obesity 281337378 E66.9 Panic disorder 078206946 F41.0 Tobacco user 809944724 Z 72.0 Vitamin D deficiency 347 72736 E55.9 [id number] KELECHI Betancourt (Adult Med) [address] [place] [id number] 10/01/2015 09:45:04 10/01/2015 10:43:18 Chronic obstructive pulmonary disease 62057827 J44.9 Essential hypertension 61380716 I10 Hyperlipidemia 54161418 E78.5 Low back pain 018038464 M54.5 Obesity 051220732 E66.9 Panic disorder 563446684 F41.0 Tobacco user 485318150 Z 72.0 Vitamin D deficiency 347 55522 E55.9 [id number] MD Stanislav Kumar (Adult Med) [address] [place] [id number] 12/30/2015 09:34:42 12/30/2015 10:16:08 Chronic obstructive pulmonary disease 50255492 J44.9 Diabetes m ellitus screening 703433619 Z13.1 Vitamin D deficiency 347 82749 E55.9 Anemia 097155620 D64.9 Hyperlipidemia 52968291 E78.5 Low back pain 725224331 M54.5 [id number] MD Stanislav Kumar (Adult Med) [address] [place] [id number] 03/13/2016 11:43:21 03/13/2016 13:02:45 Anemia 400313216 D64.9 Anxiety 51541317 F41.9 Chronic ob structive pulmonary disease 31483100 J44.9 Diabetes m ellitus screening 536609395 Z13.1 Essential hypertension 30437141 I10 Hyperlipidemia 56895329 E78.5 Low back pain 308097618 M54.5 Obesity 647387098 E66.9 Tobacco user 272502861 Z 72.0 Vitamin D deficiency 347 98536 E55.9 Administra tion of influenza vaccine 12627818 Z23 [id number] MD Stanislav Kumar (Adult Med) [address] [place] [id number] 07/31/2016 09:47:12 07/31/2016 10:25:36 Essential hypertension 64039621 I10 Hyperlipidemia 84150637 E78.5 Anxiety 39995941 F41.9 Obesity 147047696 E66.9 Panic disorder 491669791 F41.0 Vitamin D deficiency 347 40356 E55.9 Tobacco user 842845780 Z 72.0 Upper resp iratory infection 64538926 J06.9 nearly resolved [id number] [facility] [address] [place] [id number] 09/30/2016 09:29:07 09/30/2016 10:09:03 Tobacco user 748347111 Z72.0 Chronic ob structive pulmonary disease 71311688 J44.9 Anemia 792087016 D64.9 Low back pain 640447675 M54.5 Vitamin D deficiency 347 35135 E55.9 Obesity 526549406 E66.9 Hyperlipidemia 51346423 E78.5 Essential hypertension 92744667 I10 Acute otitis media 39928 03 H66.92 Allergic rhinitis 168847 04 J30.9 [id number] MD Stanislav Kumar (Adult Med) [address] [place] [id number] 12/31/2016 09:30:50 12/31/2016 10:03:26 Strain of right trapezius muscle 6765181938 2242377 S29.012A Eczema 29008325 L30.9 left ortiz Tobacco user 588446094 Z 72.0 Chronic ob structive pulmonary disease 10274503 J44.9 Anemia 234075766 D64.9 Low back pain 889457636 M54.5 Vitamin D deficiency 347 79055 E55.9 Obesity 128124256 E66.9 Anxiety 39710516 F41.9 Hyperlipidemia 05313692 E78.5 [id number] Kamilla Spencer [facility] ([facility] [address] [place] [id number] 03/04/2017 11:00:28 03/04/2017 12:00:54 Right flank pain 070914177 R10.9 Low back pain 137021412 M54.5 Hyperlipidemia 90528049 E78.5 Insomnia 386551887 G47.0 0 Acute urin rebecca tract infection [id number] N39.0 Allergic rhinitis [id number] 04 J30.9 Tobacco user [id number] Z 72.0 Chronic ob structive pulmonary disease 63327885 J44.9 Panic disorder [id number] F41.0 Obesity 992698809 E66.9 Essential hypertension 63544040 I10 [id number] Kamilla Spencer MD [facility] (Adult Med) [address] [place] [phone] 04/22/2017 10:54:21 04/22/2017 11:41:46 Insomnia 742787967 G47.00 Eczema 06361828 L30.9 left ortiz Tobacco user 098484116 Z 72.0 Chronic ob structive pulmonary disease 42751998 J44.9 Low back pain 767314724 M54.5 Hyperlipidemia 58498598 E78.5 Essential hypertension 78877388 I10 Obesity 027829358 E66.9 Vitamin D deficiency 347 00555 E55.9 Administra tion of influenza vaccine 26890030 Z23 Allergic rhinitis 883214 04 J30.9 [id number] MD Stanislav Kumar (Adult Med) [address] [place] [phone] 07/16/2017 11:19:19 07/16/2017 12:45:23 Acute bronchitis 36752259 J20.9 Chronic ob structive pulmonary disease 11066876 J44.9 [id number] Kamilla Spencer MD [facility] (Adult Med) [address] [place] [phone] 11/04/2017 09:24:04 11/04/2017 09:59:19 Acute bronchitis 71357378 J20.9 Chronic ob structive pulmonary disease 58468379 J44.9 Low back pain 948896258 M54.5 Vitamin D deficiency 347 40029 E55.9 Obesity 624869298 E66.9 Hyperlipidemia 52024140 E78.5 Essential hypertension 77410729 I10 Health Concerns Section Related Observation LastModified by Organization Detai ls LastModified Time None Recorded Concern Status LastModified by Organization Details LastModified Time None Recorded Advance Directives Directive None Recorded Payers Insurance Date Sequence Insurance Name Policy Number Policy Kam Covered Member ID Kam Member ID Guarantor Name 09/30/2016 SLIDING FEE SCHEDULE - DISCOUNT Jeanette Serafin 06/06/2015 1 [employer] [id number] Samm Serafin [id number] Jeanette Serafin 01/03/2018 1 [employer] [id number] Jeanette Serafin [id number] Jeanette Betancourt 01/23/2018 PAYMENT PLAN Jeanette Serafin Notes Date Note Type Note Provider Name and Address Organization Details Recorded Time 12/31/2016 text/html Wednesday last week strained right trapezius Ediwn Lee PA-C Attn: [address] [place], [address], [facility] 12/31/2016 14:10:09 03/04/2017 text/html right flank pain , can't sleep , wkes her up at night , baclofen helps , massage did not help Edwin Lee PA-C Attn: [address] [place], [address], [facility] 03/04/2017 14:59:57 04/22/2017 text/html gall bladder was only nola a little (less than 20 %) . Edwin Lee PA-C Attn: [address] [place], [address], [facility] 04/22/2017 14:41:20 07/16/2017 text/html since a week ago , cough Edwin Lee PA-C Attn: [address] [place], [address], [facility] 07/16/2017 14:17:45 11/04/2017 text/html cough , thick phlegm for 3 weeks , no fever .... Edwin Lee PA-C Attn: [address] [place], [address], [facility] 11/04/2017 14:31:56 OBGyn Episode No OBEpisode recorded.
--- OUTSIDE RECORDS SUMMARY | 2025-01-17 09:43 | XMS_ITS | Referral Summary ---
Author Organization [facility] Address [address] [place] [address] Care Team Providers Care Tavern Keeper Name Role Phone Jarrell Cornejo MD Primary Care Provider [phone] Encounters Date Type Department Care Team Description 11/29/2024 Orders Only [facility] Surgery [address] [facility] [address] [place] [address] Carroll Salcido MD Lung nodule (Primary Dx) from Last 3 Months Allergies No known active allergies Medications lisinopril (PRINIVIL,ZESTRI L) 20 mg tablet Take 20 mg by mouth daily Active Active Problems No known active problems Social History Tobacco Use Types Packs/Day Years Used Date Smoking Tobacco: Every Day Personal Safety Answer Date Recorded Getting School Help Needed Not on file 09/03 Comments Unknown Sex and Gender Information Value Date Recorded Sex Assigned at Not on file Legal Sex Female 4:00 AM PHYSICAL THERAPIST CLINIC DIRECTOR Gender Identity Not on file Sexual Orientation Not on file Last Filed Vital Signs Vital Sign Reading Time Taken Comments Blood Pressure 138/91 02/01/2024 12:05 PM CDT Pulse 80 02/01/2024 12:05 PM CDT Temperature 36.7 C (98 F) 07/30/2020 2:47 PM PHYSICAL THERAPIST CLINIC DIRECTOR Respiratory Rate 14 02/01/2024 12:05 PM CDT Oxygen Saturation 96% 02/01/2024 12:05 PM CDT Inhaled Oxygen Concentration - - Weight 104.3 kg (230 lb) 02/01/2024 12:05 PM CDT Height 170.2 cm (5' 7) 02/01/2024 12:05 PM CDT Body Mass Index 36.02 02/01/2024 12:05 PM CDT Plan of Treatment Not on file Insurance CIGNA C[employer]NA [employer] CIGNA [facility] OPEN ACCESS CIG Care Teams Tavern Keeper Relationship Specialty Start Date End Date Jarrell Cornejo MD [address] [place] [address] [place] [address] PCP - General 01/30/20
--- OUTSIDE RECORDS SUMMARY | 2025-01-17 09:44 | XMS_ITS | Clinical Summary ---
Author Organization [facility] Address [address] [place] [address] Care Team Providers Care Lithograph Designer Name Role Phone Jarrell Cornejo MD Primary Care Provider [phone] Medications pravastatin 20 MG tablet TAKE 1 TABLET BY MOUTH ONCE DAILY AT BEDTIME FOR 90 DAYS Active baclofen 10 MG tablet baclofen 10 mg tablet Active lisinopril 20 MG tablet lisinopril 20 mg tablet TAKE 1 TABLET BY MOUTH ONCE DAILY Active montelukast 10 MG tablet montelukast 10 mg tablet TAKE 1 TABLET BY MOUTH ONCE DAILY IN THE EVENING FOR 90 DAYS Active Active Problems Problem Noted Date Diagnosed Date 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 10/09/2021 Varicose veins of left lower extremity with pain 10/09/2021 Social History Tobacco Use Types Packs/Day Years Used Date Smoking Tobacco: Every Day Cigarettes Smokeless Tobacco: Never Alcohol Use Standard Drinks/Week Comments Yes 0 (1 standard drink = 0.6 oz pur e alcohol) Comments Unknown Sex and Gender Information Value Date Recorded Sex Assigned at Not on file Legal Sex Female 12:11 PM CDT Gender Identity Not on file Sexual Orientation Not on file Last Filed Vital Signs Vital Sign Reading Time Taken Comments Blood Pressure 140/90 10/09/2021 2:53 PM CDT Pulse 80 10/09/2021 2:53 PM CDT Temperature - - Respiratory Rate - - Oxygen Saturation - - Inhaled Oxygen Concentration - - Weight 99.4 kg (219 lb 3.2 oz) 10/09/2021 2:53 P M CDT Height 170.2 cm (5' 7) 10/09/2021 2:53 PM CDT Body Mass Index 34.33 10/09/2021 2:53 PM CDT Plan of Treatment Health Maintenance Due Date Last Done Comments Cervical Cancer Screening Pa p Smear (Age 30 to 64) Every 3 Years 1968 Colorectal Cancer Screening Colonoscopy (10 Years) 1968 Annual Physical 1971 Hepatitis C 1986 Hepatitis B Vaccines (1 of 3 - 19+ 3-dose series) 1987 Pneumococcal Vaccine: 50+ Ye ars (1 of 2 - PCV) 1987 Cervical Cancer Screening Pa p with HPV Testing (Age 30 to 64) Every 5 Years 1998 Cervical Cancer Screening with HPV 1998 Mammogram Screening 2008 Zoster Vaccines (1 of 2) 2018 COVID-19 Vaccine (1 - 2023-2 5 season) 2024 PHQ-2 (Physician [place]) 07/05/2024 DTaP, Tdap and Td Vaccines ( 2 - Td or Tdap) 07/17/2029 07/17/2019 Meningococcal B Vaccine Aged Out No l onger eligible based on patient's age to complete this topic Meningococcal Vaccine Aged Out No amado xavier eligible based on patient's age to complete this topic RSV Immunizations Under 20 Months Aged Out No longer eligible based on patient's age to complete this topic Insurance Care Teams Lithograph Designer Relationship Specialty Start Date End Date Jrarell Cornejo MD PCP - General HOSPITALIST 10/09/21
--- OUTSIDE RECORDS SUMMARY | 2025-01-17 09:44 | XMS_ITS | Data Portability ---
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 INA - SMOKER - OBESITY I - H/O HEMATURIA, Microscopic - H/O LT LUNG CANCER (S/p lobectomy 2015) - H/O ATYPICAL CHEST PAIN Annual labs: 09/08/21. Annual labs: 09/09/20. US LE venous: 08/22/21. X-ray C-spine & Lt shoulder: 10/30/19. Annual labs: 07/25/19. D/w pt in detail about her conditions, recent labs & imagines and further plan of care. Will do routine labs. Advised pt to f/u with her Uro regarding her hematuria. Pt has seen them before for this. All meds verified with pt. Meds as directed. Risks Vs benefits of Aspirin 81mg po daily with food explained. Pt agreed. Cont heat pack as directed prn. Routine skin care explained. Diet and exercise explained in detail. Pt declined for Phentermine. BP diary education given and call us if any concerns. Since pt is seeing specialist at [facility] and they are doing imagines for her lungs, will not do any imagines here. Pt agreed. Cont f/u with Vascular at [facility] as per schedule. Cont f/u with Ortho as per schedule. Cont f/u with Uro at [facility] as per schedule. Cont f/u with Cardio at [facility] as per schedule. Cont f/u with Gyne at [facility] as per schedule. Cont f/u with CT surgeon at [facility] as per schedule. Cont f/u with Uro at as per schedule. Pt has done PT and now doing at home. Pt is currently smoking about 0.5-0.75 ppd. Encouraged pt to quit smoking. Discussed in detail about different options to quit smoking including Chantix, Wellbutrin, Nicotine patch, Nicotine gum/lozenges etc. Wellbutrin and patches started. Advised to refer for sleep study; but pt declined. Advised to refer to Pulmo; but pt declined. Advised pt to refer to Pain clinic; but pt declined. Pt was referred for MRI C-spine wo; but later pt declined for it. HM: WWE - 04/22, normal as per pt. Cont f/u with Gyne as per schedule. Mammo - 09/10/20, normal. Ordered again. Colonoscopy - 04/21. Polyp ++. Cont f/u with GI as per schedule. DEXA - Never. Ordered again. Tdap - 07/17/19. Flu - Pt declined. Pneumo - Never. Pt declined. Shingrix - At pharmacy/HD. F/u in 2-3 weeks. Mammo, DEXA before next visit. Annual labs in 01/25. [email or web address] Not available 01/20/2023 10:19:39 Plan of Treatment Reminders Order Date Submit Date Provider Last Modified By Organization Details Last Modified Time Details Appointments None recorded. Lab vitamin B12 + folate, serum or blood [address], [address] [place] [address], [address], 17:54:19 magnesium, serum or plasma [address], [address] [place] [address], [address], 17:54:19 CBC w/ auto diff [address], [address] [place] [address], [address], 17:54:17 CMP, serum or plasma [address], [address] [place] [address], [address], 17:54:17 lipid panel, serum [address], [address] [place] [address], [address], 3 17:54:18 TSH, serum, reflex free T4 [address], [address] [place] [address], [address], 17:54:18 urinalysis complete, reflex culture [address], [address] [place] [address], [address], 17:54:18 HbA1c (hemoglobin A1c), blood [address], [address] [place] [address], [address], 3 17:54:18 vitamin D, 25-hydroxy, total, serum [address], [address] [place] [address], [address], 17:54:18 Referral None recorded. Procedures None recorded. Surgeries None recorded. Imaging MAMMO, screening, bilateral 2022 023 [email or web address] [id number] Not available 08:39:47 DEXA 2022 023 [email or web address] 256 Not available 08:40:47 Medication Orders lisinopril 30 mg tablet 2022 023 [facility], [address], [place], [address], 3 10:12:53 alprazolam 0.25 mg tablet 2022 023 [facility], [address], [place], [address], 3 10:14:44 Patient TargetsNo targets recorded. Patient InstructionsNo instructions recorded. Reason for Referral None Reported. Results Created Date Observation Date Name Description Value Unit Range Abnormal Flag Note LastModifiedBy Organization Detail LastModifiedTime 08/22/19 22 08/22/2021 US, doppl er, venou s No observ ation record ed. [id number] [facility] ([facility]) [address] [place] [address] [address], [place], [address], 09/02/2022 02:37:01 Result Notes None recorded. Problems Name Problem SNOMED Code Status Onset Date Resolution Date Notes Provider Name and Address Organization Details Recorded Time Atypical chest pain 833819114 Active 2019 Not Available [facility] 3 02:33:18 Venous thrombosi s 687809828 Active 2021 Not Available [facility] 3 02:33:18 Chronic neck pain 95435386326 07 Active 2019 Not Available [facility] 3 02:33:18 Chronic obstructi ve pulmonary disease 75559491 Active 2019 Not Available [facility] 3 02:33:18 Pain of left shoulder joint 64840375907 196851 Active 2019 Not Available [facility] 3 02:33:18 Microscop ic hematuria 599232518 Active 2019 Not Available [facility] 3 02:33:18 Claustrop hobia 28114431 Active 2019 Not Available [facility] 3 02:33:18 Spasm of back muscles 371092734 Active 2019 Not Available [facility] 3 02:33:18 Screening mammograp hy Active 2021 Not Available [facility] 3 02:33:19 Adult health examinati on Active 2021 Not Available [facility] 3 02:33:19 At increased risk of osteoporo sis 209874501 Active 2021 Not Available [facility] 3 02:33:19 Bronchiti s 09891142 Active 2021 Not Available [facility] 3 02:33:19 Vitamin D deficienc y 12856051 Active 2021 Not Available [facility] 3 02:33:19 Seasonal allergic rhinitis 050528113 Active 2019 Not Available [facility] 3 02:33:19 Sinusitis 08064877 Active 2021 Not Available [facility] 3 02:33:19 Elevated blood-pre ssure reading without diagnosis of hypertens ion 411111719 Completed 201910/30/2019 Not Available [facility] 3 02:33:19 Hypertens rosemary disorder 02747463 Active 2019 Not Available [facility] 3 02:33:19 Adhesive capsuliti s of shoulder 271918540 Active 2019 Not Available [facility] 3 02:33:20 Obesity 692852002 Active 2019 Not Available [facility] 3 02:33:20 History of malignant neoplasm of lung 300184474 Active 2019 Not Available [facility] 3 02:33:20 Eczema 80771026 Active 2019 Not Available [facility] 3 02:33:20 Upper respirato ry infection 03517628 Active 2021 Not Available [facility] 3 02:33:20 Cervical radiculop athy 32392280 Active 2019 Not Available [facility] 3 02:33:20 Hyperlipi demia 97833663 Active 2019 Not Available [facility] 3 02:33:20 Degenerat ion of cervical intervert ebral disc 39282957 Active 2019 Not Available [facility] 3 02:33:20 Smoker 13674323 Active 2019 Not Available [facility] 3 02:33:20 Fear of flying 763537791 Active 2022 Jarrell Cornejo MD [address], [address], [place], [address] , [employer] 3 10:13:12 Problem Notes None recorded. Procedures Surgical History Date Name Laterality Status Provider Name and Address Organization Details Recorded Time 01/21/20 Smoking Cessation completed Jarrell Cornejo MD [address], [address], [place], [address], [employer] 01/20/2023 10:04:57 ligation of bilateral fallopian tubes completed Not Available [facility] 09/02/2022 02:30:41 cholecystectomy completed Not Available [facility] 09/02/2022 02:30:41 Imaging Results None recorded. Procedure Notes None recorded. Medical Equipment None Reported. Allergies No known drug allergies Medications Name Sig Start Date Stop Date Status Note LastModified by Organization Details LastModified Time bupropion HCl SR 150 mg tablet,12 hr sustained- release TAKE 1 TABLET BY MOUTH EVERY 12 HOURS DIRECTED active Not Available Not Available No t Available prednisone 10 mg tablet 07/17 completed Not Available Not Available Not Available nicotine 14 mg/24 hr daily transderma l patch APPLY 1 PATCH TOPICALL Y ONCE DAILY DIRECTED 05/20 completed Not Available Not Available Not Available atorvastat in 10 mg tablet Take 1 tablet every day by oral route at bedtime for 90 days. 09/10 completed Not Available Not Available Not Available azithromyc in 250 mg tablet 01/20 completed Not Available Not Available Not Available fluconazol e 150 mg tablet TAKE 1 TABLET BY MOUTH A ONE TIME DOSE active Not Available Not Available No t Available lisinopril 20 mg tablet TAKE 1 TABLET BY MOUTH ONCE DAILY 01/20 completed Not Available Not Available Not Available ciprofloxa michael 500 mg tablet Take 1 tablet every 12 hours by oral route as directed for 5 days. active Not Available Not Available No t Available sulfametho xazole 800 mg-trimeth oprim 160 mg tablet 07/17 completed Not Available Not Available Not Available aspirin 81 mg tablet,del ayed release TAKE 1 TABLET BY MOUTH ONCE DAILY active Not Available Not Available No t Available Kenalog 40 mg/mL suspension for injection Take 40 mg by injectio n route for 1 day. active Not Available Not Available No t Available alprazolam 0.5 mg tablet Take 1 tablet as needed by oral route as directed for 1 day. active Use 30 mins before MRI as needed, as directe d. Not Available Not Available Not Available alprazolam 0.25 mg tablet TAKE 1 TABLET BY MOUTH EVERY 6 TO 8 HOURS NEEDED FOR 2 DAYS active Not Available Not Available No t Available Kenalog 10 mg/mL suspension for injection In office injectio n administ ered by the provider 02/25 completed [facility]: [phone] Not Available Not Available Not Available meclizine 25 mg tablet TAKE 1 TABLET BY MOUTH THREE TIMES DAILY NEEDED FOR DIZZINES S 07/17 completed Not Available Not Available Not Available baclofen 10 mg tablet TAKE 1 TABLET BY MOUTH EVERY 8 HOURS NEEDED active Not Available Not Available No t Available triamcinol one acetonide 0.1 % topical ointment APPLY A THIN LAYER TO THE AFFECTED AREA(S) BY TOPICAL ROUTE 2 TIMES PER DAY active Not Available Not Available No t Available lisinopril 30 mg tablet TAKE 1 TABLET BY MOUTH ONCE DAILY DIRECTED active Not Available Not Available No t Available diclofenac sodium 75 mg tablet,del ayed release TAKE 1 TABLET BY MOUTH EVERY 12 HOURS NEEDED FOR 30 DAYS active Not Available Not Available No t Available montelukas t 10 mg tablet TAKE 1 TABLET BY MOUTH ONCE DAILY IN THE EVENING FOR 90 DAYS active Not Available Not Available No t Available pravastati n 20 mg tablet Take 1 tablet every day by oral route at bedtime for 90 days. active Not Available Not Available No t Available ergocalcif cesar (vitamin D2) 1,250 mcg (50,000 unit) capsule TAKE 1 CAPSULE BY MOUTH ONCE A WEEK DIRECTED active Not Available Not Available No t Available estradiol 0.01% (0.1 mg/gram) vaginal cream APPLY 1 GRAM OF CREAM USING A FINGERTI P AMOUNT VAGINALL Y TWO NIGHTS PER WEEK active Not Available Not Available No t Available methylpred nisolone 4 mg tablets in a dose pack Take 1 dose pk every day by oral route as directed for 6 days. 01/20 completed Not Available Not Available Not Available albuterol sulfate HFA 90 mcg/actuat ion aerosol inhaler Inhale 2 puffs every 6 hours by inhalati on route as needed for 30 days. active Not Available Not Available No t Available fluticason e propionate 50 mcg/actuat ion nasal spray,susp ension [facility] 2 sprays every day by intranas al route as needed for 30 days. active Not Available Not Available No t Available loratadine 10 mg tablet TAKE 1 TABLET BY MOUTH ONCE DAILY NEEDED active Not Available Not Available No t Available amoxicilli n 875 mg-potassi um clavulanat e 125 mg tablet Take 1 tablet every 12 hours by oral route as directed for 10 days. active Not Available Not Available No t Available nicotine 7 mg/24 hr daily transderma l patch Apply 1 patch every day by transder mal route as directed for 30 days. 01/01 completed Not Available Not Available Not Available nitrofuran toin monohydrat e/macrocry stals 100 mg capsule TAKE 1 CAPSULE BY MOUTH EVERY 12 HOURS FOR 7 DAYS 09/10 completed Not Available Not Available Not Available pregabalin 50 mg capsule Take 1 capsule every 12 hours by oral route as directed for 30 days. 01/20 completed Not Available Not Available Not Available lidocaine (PF) 10 mg/mL (1 %) injection solution In office injectio n administ ered by the provider 02/25 completed [facility]: [phone] Not Available Not Available Not Available Anoro Ellipta 62.5 mcg-25 mcg/actuat ion powder for inhalation INHALE 1 PUFF BY MOUTH ONCE DAILY DIRECTED active Not Available Not Available No t Available Clenpiq 10 mg-3.5 gram-12 gram/160 mL oral solution 07/17 completed Not Available Not Available Not Available Flucelvax Quad (PF) 60 mcg (15 mcg x 4)/0.5 mL IM syringe ADM 0.5ML IM UTD 07/17 completed Not Available Not Available Not Available ID NOW COVID-19 Test Kit TEST DIRECTED active Not Available Not Available No t Available Vitals Date Recorded Body mass index (BMI) Body height Oxygen saturation Oxygen saturation in Arterial blood by Pulse oximetry Heart rate Respiratory rate Body temperature Body weight Systolic And Diastolic Provider Name and Address Organization Details Last Updated DateTime 2 34.5 kg/m2 170.18 cm 99 % 99 % 77 /min 16 /min 98.2 [degF] 54514.6 7 g 130/80 mm[Hg] Not Available [facility] 3 02:32:38 Date Recorded Body height Body mass index (BMI) Body weight Body temperature Heart rate Respiratory rate Oxygen saturation Oxygen saturation in Arterial blood by Pulse oximetry Systolic And Diastolic Provider Name and Address Organization Details Last Updated DateTime 3 170.18 cm 29.9 kg/m2 68787.1 4 g 98.6 [degF] 68 /min 20 /min 96 % 96 % 124/78 mm[Hg] Seamus KLEIN [facility] 3 10:01:42 Date Recorded Body mass index (BMI) Body height Oxygen saturation Oxygen saturation in Arterial blood by Pulse oximetry Heart rate Respiratory rate Body temperature Body weight Systolic And Diastolic Provider Name and Address Organization Details Last Updated DateTime 2 31.2 kg/m2 170.18 cm 99 % 99 % 81 /min 16 /min 98.2 [degF] 88008.8 8 g 132/86 mm[Hg] Not Available [facility] 3 02:32:38 Date Recorded Body mass index (BMI) Body height Oxygen saturation Oxygen saturation in Arterial blood by Pulse oximetry Heart rate Respiratory rate Body temperature Body weight Systolic And Diastolic Provider Name and Address Organization Details Last Updated DateTime 2 30.5 kg/m2 170.18 cm 99 % 99 % 71 /min 16 /min 97.9 [degF] 39585.5 1 g 134/92 mm[Hg] Not Available [facility] 3 02:32:38 Social History Question Answer Notes LastModified by Organizat ion Details LastModified Time Tobacco Smoking Status Current Every Day Smoker Not Available [facility] 09/02/2022 02:29:10 Do You Have An Advance Directive? No [id number] Information not available 09/02/2022 Do You Wear A Helmet When Biking? No MIGRATION.44779 [id number] Information not available 09/02/2022 What Is Your Level Of Caffeine Consumption? Heavy MIGRATION.28155 [id number] Information not available 09/02/2022 In The 14 Days Before Symptom Onset, Have You Had Close Contact With A Laboratory-confi rmed COVID-19 While That Case Was Ill? No MIGRATION.03623 [id number] Information not available 09/02/2022 In The 14 Days Before Symptom Onset, Have You Had Close Contact With A Person Who Is Under Investigation For COVID-19 While That Person Was Ill? No MIGRATION.82687 [id number] Information not available 09/02/2022 What Type Of Diet Are You Following? REGULAR MIGRATION.20043 73032 Information not available 09/02/2022 Have There Been Any Changes To Your Family Or Social Situation? No MIGRATION.39895 18262 Information not available 09/02/2022 What Is The Fluoride Status Of Your Home? Unknown MIGRATION.05708 35118 Information not available 09/02/2022 Are There Any Guns Present In Your Home? No MIGRATION.51716 40846 Information not available 09/02/2022 Do You Use Insect Repellent Routinely? No MIGRATION.96398 09628 Information not available 09/02/2022 Where Do You Live? [place] MIGRATION.28731 35641 Information not available 09/02/2022 Do You Have A Medical Power Of Insole Presser? No MIGRATION.65090 68677 Information not available 09/02/2022 Have You Ever Been Counseled For Unhealthy Alcohol Use? No MIGRATION.78915 61868 Information not available 09/02/2022 Do You Have Any Pets? Yes MIGRATION.84099 45204 Information not available 09/02/2022 What Is Your Relationship Status? MIGRATION.53167 73322 Information not available 09/02/2022 Do You Use Your Seat Belt Or Car Seat Routinely? No MIGRATION.75542 36931 Information not available 09/02/2022 Do You Have Smoke And Carbon Monoxide Detectors In Your Home? Yes MIGRATION.95105 35683 Information not available 09/02/2022 Are You Passively Exposed To Smoke? No MIGRATION.32281 60128 Information not available 09/02/2022 Are There Any Smokers In Your House? Yes MIGRATION.70292 19760 Information not available 09/02/2022 How Much Tobacco Do You Smoke? 1 PPD MIGRATION.65384 07644 Information not available 09/02/2022 Do You Participate In Social Media? No MIGRATION.73054 23800 Information not available 09/02/2022 Do You Use Sunscreen Routinely? Yes MIGRATION.11629 61482 Information not available 09/02/2022 Has Tobacco Cessation Counseling Been Provided? No MIGRATION.37601 04296 Information not available 09/02/2022 Have You Recently Traveled Abroad? No MIGRATION.77909 66289 Information not available 09/02/2022 Are You Currently In School? No MIGRATION.97444 99094 Information not available 09/02/2022 Do You Have Any Dietary Restrictions? No MIGRATION.23626 66293 Information not available 09/02/2022 Sex: Female Functional Status Question Answer Note LastModified by Organizat ion Details LastModified Time Do you use any illicit or recreational drugs? No MIGRATION.[id number] 026 Information not available 09/02/2022 Do you or have you ever used any other forms of tobacco or nicotine? No MIGRATION.8700621 026 Information not available 09/02/2022 What is your level of alcohol consumption? Occasional MIGRATION.[id number] 026 Information not available 09/02/2022 What is your occupation? [employer] MIGRATION.[id number] 026 Information not available 09/02/2022 What is your exercise level? Occasional MIGRATION.[id number] 026 Information not available 09/02/2022 Mental Status None recorded. Family History Relationship Description Onset Age of this Age Resolved Age Notes LastModified by Organization Details LastModified Time Father No current problems or disability [id number] Not available 09/02/2022 02:30:45 Mother No current problems or disability MIGRATION.435 [id number] Not available 09/02/2022 02:30:45 Medical History No medical history recorded. Gynecological HistoryNo gynecological history recorded. Obstetrics History GPAL:G 0 P 0 0 0 0 Immunizations Vaccine Type Date Status Note Provider Nam e and Address Organization Details Recorded Time Tdap 07/17/2019 completed Not Available [facility] 09/02/2022 02:36:43 Past Encounters Encounter ID Performer Location Encounter Start Date Encounter Closed Date Diagnosis/Indication Diagnosis SNOMED-CT Code Diagnosis ICD10 Code Diagnosis Note [id number] MD LATOYA Canales[facility] [address] [place] [address] 09/17/2020 00:00:00 09/17/2020 09:47:32 [id number] [facility] [address] [facility] [place] [address] 01/01/2021 00:00:00 01/01/2021 09:58:44 [id number] Jarrell Cornejo MD [facility] [address] [place], [place] [address] [place] [address] 04/22/2021 00:00:00 04/22/2021 11:09:37 [id number] [facility] [address] [place], [place] [address] [place] [address] 08/20/2021 00:00:00 08/20/2021 10:38:05 [id number] [facility] [address] [place], [place] [address] [place] [address] 09/10/2021 00:00:00 09/10/2021 10:10:16 [id number] Jarrell Cornejo MD [address] [address] 04/28/2022 00:00:00 04/28/2022 10:24:54 [id number] Jarrell Cornejo MD [facility] [address] [place] [address] 05/20/2022 00:00:00 05/20/2022 12:56:09 [id number] Jarrell Cornejo MD [address] [address] 06/17/2022 00:00:00 06/17/2022 11:12:05 [id number] Jarrell Cornejo MD [address] [address] 01/20/2023 09:53:37 01/20/2023 10:21:39 Adult health examination 128521464 Z00.00 Vitamin D deficiency 347 72567 E55.9 Obesity 730107362 E66.9 Chronic neck pain 060816 8001 107 M54.2 Screening mammography 24 132174 Z12.31 Screening for osteoporosis 262703454 Z13.820 Hypertensive disorder 38 303811 I10 Fear of flying 725636897 F40.243 Smoker 54744102 F17.200 Health Concerns Section Related Observation LastModified by Organization Detai ls LastModified Time None Recorded Concern Status LastModified by Organization Details LastModified Time None Recorded Advance Directives Directive N: Payers Insurance Date Sequence Insurance Name Policy Number Policy Kam Covered Member ID Kam Member ID Guarantor Name 01/26/2023 1 REANNA [id number] Jeanette Betancourt [id number] Jeanette Betancourt Notes Date Note Type Note Provider Name and Address Organization Details Recorded Time 01/20/2023 text/html Pt is here for h er annual exam. Doing overall well. Denies any problem with meds.Pt has not gone for Mammo, DEXA yet.Pt is not checking her BP at home.Pt is f/u with Vascular at [facility] for her Lt LE superficial clots.Pt says her neck pain is improved about 90-95%. Denies any problems with Lyrica.Pt has started PT and has seen Ortho and got steroid injection in her Lt shoulder and its helping her to good extent.Still smoking about 0.5-0.75 ppd. Pt has been started on Wellbutrin and patches. Denies any problems with it.C/o chronic neck pain for last few years and Lt shoulder pain with Lt UE tingling and numbness for last 5-6 months. Pt denies any recent fall/trauma/heavy lifting. Denies any pain anywhere else.C/o COPD and was on Anoro in the past for it and was doing well. But she stopped it for last several months. Pt has h/o Lt lung cancer and she had partial lobectomy done in 2016 at [facility] and she is f/u with specialist there for this and gets scans in every January with them. Pt doesn't want to see any Pulmo.C/o chronic muscle spasms over her Lt side of chest wall area since her lung surgery and is on Baclofen for it.Pt was referred for MRI C-spine, but pt decided not to go for it. Jarrell Cornejo MD [address] [place] [address], [facility] [address], [place], [address], [facility] [employer] 01/20/2023 10:20:11 OBGyn Episode No OBEpisode recorded.
[2025-01-17 10:16] LABS: Hematocrit 45.3 % (37.0-47.0); Hemoglobin 15.0 g/dL (12.0-15.0); Immature Granulocyte Percent A 0.2 % (0-0.5); Lymphocytes Absolute Auto 1.88 K/mm3 (0.9-3.2); Mean Corpuscular HGB Conc 33.1 g/dl (32-36); Mean Corpuscular Hemoglobin 29.6 pg (26-34); Mean Corpuscular Volume 89.3 fl (80-100); Nucleated Red Blood Cells Absolute Auto 0.000 K/mm3 (0.0-0.012); Nucleated Red Blood Cells Perc 0.0 % (0.0-0.2); Platelet Count Result 250 k/mm3 (150-375); Red Blood Count 5.07 M/mm3 (4.2-5.4); White Blood Count 5.4 K/mm3 (4.5-10.0)
[2025-01-17 10:36] LABS: Alanine Aminotransferase 16 U/L (6-35); Albumin Level 4.2 g/dL (3.5-5.1); Alkaline Phosphatase 99 U/L (38-126); Anion Gap 6 mmol/L (4-12); Aspartate Amino Transferase 23 U/L (14-36); Bilirubin,Total 0.6 mg/dL (0.2-1.3); Blood Urea Nitrogen 9 mg/dL (7-17); Calcium 9.2 mg/dL (8.4-10.2); Carbon Dioxide 26 mmol/L (22-30); Chloride 103 mmol/L (98-107); Cholesterol 176 mg/dL (0-200); Estimated Glomerular Filt Rate > 60; Glucose 95 mg/dL (65-110); HDL Direct 62 mg/dL; Potassium 3.9 mmol/L (3.4-5.0); Sodium 135 mmol/L (137-145); Total Protein 7.5 g/dL (6.3-8.2); Triglycerides 95 mg/dL (<150)
[2025-01-17 12:35] LABS: Hemoglobin A1C 5.6 % (<5.7)
== END 2025-01-17 09:40 | disposition home or self-care (01) ==
LOC: ANHLAB 09:40
PROVIDERS: PCP Family Medicine; Visit Provider Student in an Organized Health Care Education/Training Program
DX: R73.01 Impaired fasting glucose (principal); I10 Essential (primary) hypertension; E78.5 Hyperlipidemia, unspecified
CPT/HCPCS: 36415; 80053; 80061; 83036; 85025

== ENCOUNTER 2025-05-09 01:01 | Day surgery (SDC) | payer OTHER, SELFPAY ==
[2025-04-26 09:42] VITALS: BMI 36.8
--- OUTSIDE RECORDS SUMMARY | 2025-05-09 01:05 | XMS_ITS | Data Portability ---
Author Organization [facility] [employer], Main Office Address [address] [place] [address] Care Team Providers Care Accounting Teacher Name Role Phone JARRELL CORNEJO Primary Care Provider JARRELL CORNEJO Referring Provider Assessment Encounter Date Assessment Date Assessment LastModified [...] per schedule. Cont f/u with Uro at [place] as per schedule. Cont f/u with Cardio at [facility] as per schedule. Cont f/u with Gyne at [place] as per schedule. Cont f/u with CT [...] before next visit. Annual labs in 01/25. Not available 01/20/2023 10:19:39 Plan of Treatment Reminders Order Date Submit Date Provider Last Modified By Organization Details Last Modified Time Details Appointments None recorded. Lab vitamin B12 + folate, serum or blood [address], [address] [place] [address], [address], 17:54:19 magnesium, serum or plasma [address], [address] [place] [address], [address], 17:54:19 CBC w/ auto diff [address], [address] [place] [address], [address], 17:54:17 CMP, serum or plasma [address], [address] [place] [address], [address], 17:54:17 lipid panel, serum [address], [address] [place] [address], [address], 3 17:54:18 TSH, serum, reflex free T4 [address], [address] [place] [address], [address], 17:54:18 urinalysis complete, reflex culture [address], [address] [place] [address], [address], 17:54:18 HbA1c (hemoglobin A1c), blood [address], [address] [place] [address], [address], 3 17:54:18 vitamin D, 25-hydroxy, total, serum [address], [address] [place] [address], [address], 17:54:18 Referral None recorded. Procedures None recorded. Surgeries None recorded. Imaging MAMMO, screening, bilateral 2022 023 [email or web address] 256 Not available 08:39:47 DEXA 2022 023 [email or web address] 256 Not available 08:40:47 Medication Orders lisinopril 30 mg tablet 2022 023 [facility], [address] [facility], [place], [address], 3 10:12:53 alprazolam 0.25 mg tablet 2022 023 [facility], [address] [facility], [place], [address], 3 10:14:44 Patient TargetsNo targets recorded. Patient InstructionsNo instructions recorded. Reason for Referral None Reported. Results Created Date Observation Date Name Description Value Unit Range Abnormal Flag Note LastModifiedBy Organization Detail LastModifiedTime 08/22/19 22 08/22/2021 US, doppl er, venpartha s No observ ation record ed. [id number] [facility] ([facility]) [address] [place] [address] [address], [place], [address], 09/02/2022 02:37:01 Result Notes None recorded. Problems Name Problem SNOMED Code Status Onset Date Resolution Date Notes Provider Name and Address Organization Details Recorded Time Atypical chest pain 255890744 Active 2019 Not Available [facility] 3 02:33:18 Chronic obstructi ve pulmonary disease 95261904 Active 2019 Not Available [facility] 3 02:33:18 Spasm of back muscles 197647855 Active 2019 Not Available [facility] 3 02:33:18 Seasonal allergic rhinitis 855928168 Active 2019 Not Available [facility] 3 02:33:19 Obesity 735893662 Active 2019 Not Available [facility] 3 02:33:20 History of primary malignant neoplasm of lung 705880940 Active 2019 Not Available [facility] 3 02:33:20 Eczema 61319489 Active 2019 Not Available [facility] 3 02:33:20 Smoker 40457521 Active 2019 Not Available [facility] 3 02:33:20 Microscop ic hematuria 645350991 Active 2019 Not Available [facility] 3 02:33:18 Hyperlipi demia 57444856 Active 2019 Not Available [facility] 3 02:33:20 Chronic neck pain 51920079731 07 Active 2019 Not Available [facility] 3 02:33:18 Pain of left shoulder joint 94700680415 057566 Active 2019 Not Available [facility] 3 02:33:18 Elevated blood-pre ssure reading without diagnosis of hypertens ion 579087085 Completed 201910/30/2019 Not Available [facility] 3 02:33:19 Hypertens rosemary disorder 35021264 Active 2019 Not Available [facility] 3 02:33:19 Cervical radiculop athy 86944905 Active 2019 Not Available [facility] 3 02:33:20 Degenerat ion of cervical intervert ebral disc 80782977 Active 2019 Not Available [facility] 3 02:33:20 Claustrop hobia 06945320 Active 2019 Not Available [facility] 3 02:33:18 Adhesive capsuliti s of shoulder 854186274 Active 2019 Not Available [facility] 3 02:33:20 Screening mammograp hy Active 2021 Not Available [facility] 3 02:33:19 Adult health examinati on Active 2021 Not Available [facility] 3 02:33:19 At increased risk of osteoporo sis 481528799 Active 2021 Not Available [facility] 3 02:33:19 Venous thrombosi s 124658410 Active 2021 Not Available [facility] 3 02:33:18 Vitamin D deficienc y 68871103 Active 2021 Not Available [facility] 3 02:33:19 Sinusitis 21512841 Active 2021 Not Available [facility] 3 02:33:19 Upper respirato ry infection 48071598 Active 2021 Not Available [facility] 3 02:33:20 Bronchiti s 27319442 Active 2021 Not Available [facility] 3 02:33:19 Fear of flying 881363040 Active 2022 Jarrell Cornejo MD [address], [address], [place], [address] , [facility] 3 10:13:12 Problem Notes None recorded. Procedures Surgical History Date Name Laterality Status Provider Name and Address Organization Details Recorded Time 01/21/20 Smoking Cessation completed Jarrell Cornejo MD [address], [address], [place], [address], [facility] 01/20/2023 10:04:57 ligation of bilateral fallopian tubes completed Not Available [facility] 09/02/2022 02:30:41 cholecystectomy completed Not Available [facility] 09/02/2022 02:30:41 Imaging Results None recorded. Procedure [...] administ ered by the provider 02/25 completed [facility] [place] 0003-04 94-20 Not Available Not Available Not [...] propionate 50 mcg/actuat ion nasal spray,susp ension [place] 2 sprays every day by intranas al [...] administ ered by the provider 02/25 completed [facility] [place] 0409-42 76-17 Not Available Not Available Not [...] % 77 /min 16 /min 98.2 [degF] 17628.6 7 g 130/80 mm[Hg] Not Available [facility] 3 02:32:38 Date Recorded Body height Body mass index (BMI) Body weight Body temperature Heart rate Respiratory rate Oxygen saturation Oxygen saturation in Arterial blood by Pulse oximetry Pain severity - 0-10 verbal numeric rating [Score] - Reported Systolic And Diastolic Provider Name and Address Organization Details Last Updated DateTime 3 170.18 cm 29.9 kg/m2 01109.1 4 g 98.6 [degF] 68 /min 20 /min 96 % 96 % 0 124/78 mm[Hg] Seamus K[facility] 3 10:01:42 Date Recorded Body mass index (BMI) Body height Oxygen saturation Oxygen saturation in Arterial blood by Pulse oximetry Heart rate Respiratory rate Body temperature Body weight Systolic And Diastolic Provider Name and Address Organization Details Last Updated DateTime 2 31.2 kg/m2 170.18 cm 99 % 99 % 81 /min 16 /min 98.2 [degF] 72169.8 8 g 132/86 mm[Hg] Not Available [facility] 3 02:32:38 Date Recorded Body mass index (BMI) Body height Oxygen saturation Oxygen saturation in Arterial blood by Pulse oximetry Heart rate Respiratory rate Body temperature Body weight Systolic And Diastolic Provider Name and Address Organization Details Last Updated DateTime 2 30.5 kg/m2 170.18 cm 99 % 99 % 71 /min 16 /min 97.9 [degF] 23923.5 1 g 134/92 mm[Hg] Not Available [facility] 3 02:32:38 Social History Question Answer Notes LastModified by Organizat ion Details LastModified Time Tobacco Smoking Status Current Every Day Smoker Not Available [facility] 09/02/2022 02:29:10 Do You Have An Advance Directive? No [id number] Information not available 09/02/2022 Do You Wear A Helmet When Biking? No MIGRATION.30012 26698 Information not available 09/02/2022 What Is Your Level Of Caffeine Consumption? Heavy MIGRATION.53640 27386 Information not available 09/02/2022 In The 14 Days Before Symptom Onset, Have You Had Close Contact With A Laboratory-confi rmed COVID-19 While That Case Was Ill? No MIGRATION.87615 74312 Information not available 09/02/2022 In The 14 Days Before Symptom Onset, Have You Had Close Contact With A Person Who Is Under Investigation For COVID-19 While That Person Was Ill? No MIGRATION.69746 35422 Information not available 09/02/2022 What Type Of Diet Are You Following? REGULAR MIGRATION.42901 35082 Information not available 09/02/2022 Have There Been Any Changes To Your Family Or Social Situation? No MIGRATION.91618 10992 Information not available 09/02/2022 What Is The Fluoride Status Of Your Home? Unknown MIGRATION.88559 60322 Information not available 09/02/2022 Are There Any Guns Present In Your Home? No MIGRATION.42445 23453 Information not available 09/02/2022 Do You Use Insect Repellent Routinely? No MIGRATION.39178 63574 Information not available 09/02/2022 Where Do You Live? [place] MIGRATION.89676 03326 Information not available 09/02/2022 Do You Have A Medical Power Of Time Clock Inspector? No MIGRATION.30970 65652 Information not available 09/02/2022 Have You Ever Been Counseled For Unhealthy Alcohol Use? No MIGRATION.69114 71710 Information not available 09/02/2022 Do You Have Any Pets? Yes MIGRATION.94012 79173 Information not available 09/02/2022 What Is Your Relationship Status? MIGRATION.11688 43511 Information not available 09/02/2022 Do You Use Your Seat Belt Or Car Seat Routinely? No MIGRATION.80251 02085 Information not available 09/02/2022 Do You Have Smoke And Carbon Monoxide Detectors In Your Home? Yes MIGRATION.91040 95690 Information not available 09/02/2022 Are You Passively Exposed To Smoke? No MIGRATION.94260 84001 Information not available 09/02/2022 Are There Any Smokers In Your House? Yes MIGRATION.67927 12521 Information not available 09/02/2022 How Much Tobacco Do You Smoke? 1 PPD MIGRATION.62450 53981 Information not available 09/02/2022 Do You Participate In Social Media? No MIGRATION.88342 03315 Information not available 09/02/2022 Do You Use Sunscreen Routinely? Yes MIGRATION.85665 91818 Information not available 09/02/2022 Has Tobacco Cessation Counseling Been Provided? No MIGRATION.19639 21710 Information not available 09/02/2022 Have You Recently Traveled Abroad? No MIGRATION.87324 70379 Information not available 09/02/2022 Are You Currently In School? No MIGRATION.40740 97825 Information not available 09/02/2022 Do You Have Any Dietary Restrictions? No MIGRATION.06620 70464 Information not available 09/02/2022 Sex: Female Functional Status Question Answer Note LastModified by Organizat ion Details LastModified Time Do you use any illicit or recreational drugs? No MIGRATION.5445689 026 Information not available 09/02/2022 Do you or have you ever used any other forms of tobacco or nicotine? No MIGRATION.9733900 026 Information not available 09/02/2022 What is your level of alcohol consumption? Occasional MIGRATION.1810262 026 Information not available 09/02/2022 What is your occupation? [employer] MIGRATION.9093617 026 Information not available 09/02/2022 What is your exercise level? Occasional MIGRATION.3998946 026 Information not available 09/02/2022 Mental Status None recorded. Family History Relationship Description Onset Age of this Age Resolved Age Notes LastModified by Organization Details LastModified Time Father No current problems or disability [id number] Not available 09/02/2022 02:30:45 Mother No current problems or disability [id number] Not available 09/02/2022 02:30:45 Medical History No [...] Diagnosis SNOMED-CT Code Diagnosis ICD10 Code Diagnosis IMO Codes Diagnosis Note [id number] Jarrell Cornejo MD [facility] [address] [address] 09/17/2020 00:00:00 09/17/2020 09:47:32 [id number] Jarrell Cornejo MD [facility] [address] [place] [address] 01/01/2021 00:00:00 01/01/2021 09:58:44 [id number] Jarrell Cornejo MD [facility] [address] [place] [address] 04/22/2021 00:00:00 04/22/2021 11:09:37 [id number] Jarrell Cornejo MD [facility] [address] [place] [address] 08/20/2021 00:00:00 08/20/2021 10:38:05 [id number] Jarrell Cornejo MD [facility] [address] [place] [address] 09/10/2021 00:00:00 09/10/2021 10:10:16 [id number] Jarrell Cornejo MD [facility] [address] [place] [address] 04/28/2022 00:00:00 04/28/2022 10:24:54 [id number] Jarrell Cornejo MD [facility] [address] [place] [address] 05/20/2022 00:00:00 05/20/2022 12:56:09 [id number] Jarrell Cornejo MD [facility] [address] [place] [address] 06/17/2022 00:00:00 06/17/2022 11:12:05 [id number] Jarrell Cornejo MD [facility] [address] [place] [address] 01/20/2023 09:53:37 01/20/2023 10:21:39 Adult health examination 150128728 Z00.00 Vitamin D deficiency 347 03539 E55.9 Obesity 133467041 E66.9 Chronic neck pain 478582 4159 107 M54.2 Screening mammography 24 703066 Z12.31 Screening for osteoporosis 773952455 Z13.820 Hypertensive disorder 38 392779 I10 Fear of flying 903553374 F40.243 Smoker 00377891 F17.200 Health Concerns Section Related Observation LastModified by Organization Detai ls LastModified Time None Recorded Concern Status LastModified by Organization Details LastModified Time None Recorded Advance Directives Directive N: Payers Insurance Date Sequence Insurance Name Policy Number Policy Kam Covered Member ID Kam Member ID Guarantor Name 01/26/2023 1 REANNA [id number] Jeanette Betancourt [id number] Jeanette Betancourt Notes Date Note Type Note Provider Name and Address Organization Details Recorded Time 01/20/2023 text/html Pt is here for her annual exam. Doing overall well. Denies any [...] partial lobectomy done in 2016 at [facility] and she is f/u with specialist there for this and gets scans in every January with them. Pt doesn't want to see any Pulmo.C/o chronic muscle spasms over her Lt side of chest wall area since her lung surgery and is on Baclofen for it.Pt was referred for MRI C-spine, but pt decided not to go for it. Jarrell Cornejo MD [address] [place] [address], [facility] [address], [place], [address], [place] [facility] 01/20/2023 10:20:11 OBGyn Episode No OBEpisode recorded.
--- OUTSIDE RECORDS SUMMARY | 2025-05-09 01:05 | XMS_ITS | Clinical Summary ---
Author Organization [facility] Address [address] [place] [address] Care Team Providers Care Litigation Services Manager Name Role Phone Jarrell Cornejo MD Primary Care Provider [phone] Medications pravastatin 20 MG tablet TAKE 1 [...] Date Last Done Comments Cervical Cancer Screening Pap Smear (Age 30 to 64) Every 3 Years 1968 Colorectal Cancer Screening Colonoscopy (10 Years) 1968 Annual Physical 1971 Hepatitis C 1986 Hepatitis B Vaccines (1 of 3 - 19+ 3-dose series) 1987 Pneumococcal Vaccine: 50+ Years (1 of 2 - PCV) 1987 Cervical Cancer Screening Pap with HPV Testing (Age 30 to 64) Every 5 Years 1998 Cervical Cancer Screening with HPV 1998 Mammogram Screening 2008 Zoster Vaccines (1 of 2) 2018 PHQ-2 (Physician [place]) 07/05/2024 COVID-19 Vaccine ( - season) 2025 Influenza Adult (#1) 2025 04/06/2019, 04/29/2018, 04/22/2017, Additional history exists DTaP, Tdap and Td Vaccines (2 - Td or Tdap) 07/17/2029 07/17/2019 Hepatitis A Vaccines Aged Out No long er eligible based on patient's age to complete this topic Meningococcal B Vaccine Aged Out No l onger eligible based on patient's age to complete this topic Meningococcal Vaccine Aged Out No amado xavier eligible based on patient's age to complete this topic RSV Immunizations Under 20 Months Aged Out No longer eligible based on patient's age to complete this topic Insurance Care Teams Litigation Services Manager Relationship Specialty Start Date End Date Jarrell Cornejo MD PCP - General HOSPITALIST 10/09/21
--- OUTSIDE RECORDS SUMMARY | 2025-05-09 01:05 | XMS_ITS | Clinical Summary ---
Author Organization [facility] Address [address] [place] [address] Care Team Providers Care Russian Language Instructor Name Role Phone Jarrell Cornejo MD Primary Care Provider [phone] Allergies No known active allergies Medications lisinopril (PRINIVIL,ZESTRI L) 20 mg tablet Take 20 mg by mouth daily Active Active Problems No known active problems Encounters Date Type Department Care Team Description 03/19/2025 Orders Only [facility] Medicine Surgery [address] [address] Carroll Salcido MD Malignant neoplasm of lung, unspecified laterality, unspecified part of lung (HCC) (Primary Dx) from Last 3 Months Family History Medical History Relation Name Comments COPD Mother Family history of chronic obstructive pulmonary disease - (Added by TW Conv) Heart failure Mother Family history of congestive heart failure - (Added by TW Conv) Relation Name Status Comments Mother Social History Tobacco Use Types Packs/Day Years Used Date Smoking Tobacco: Every Day Comments Unknown Sex and Gender Information Value Date Recorded Sex Assigned at Not on file Legal Sex Female 4:00 AM SUPERVISOR CLAIMS Gender Identity Not on file Sexual Orientation Not on file Last Filed Vital Signs Vital Sign Reading Time Taken Comments Blood Pressure 128/76 01/30/2025 11:25 AM CDT Pulse 78 01/30/2025 11:25 AM CDT Temperature 36.7 C (98 F) 07/30/2020 2:47 PM SUPERVISOR CLAIMS Respiratory Rate 18 01/30/2025 11:25 AM CDT Oxygen Saturation 96% 01/30/2025 11:25 AM CDT Inhaled Oxygen Concentration - - Weight 103.4 kg (228 lb) 01/30/2025 11:25 AM CDT Height 170.2 cm (5' 7) 01/30/2025 11:25 AM CDT Body Mass Index 35.71 01/30/2025 11:25 AM CDT Plan of Treatment Health Maintenance Due Date Last Done Comments Breast Cancer Screening-Mammogram 1968 Cervical Cancer Screening 1968 Colon Cancer Screening-Colonoscopy 1968 Depression Screening 1968 Hepatitis C Screening 1968 Hepatitis B Screening 1986 Regular Well Visit/Exam 18-64 1986 Pneumococcal vaccine <65 (1 of 2 - PCV) 1987 Zoster Vaccine (1 of 2) 2018 Influenza Vaccine (#1) 2025 9, 04/29/2018, 04/22/2017, Additional history exists DTaP/Tdap/Td Vaccine (2 - Td or Tdap) 07/17/2029 07/17/2019 Insurance [facility], [facility]–1983 [employer] C[employer] CIGNA OPEN ACCESS CIGNA Care Teams Russian Language Instructor Relationship Specialty Start Date End Date Jarrell Cornejo MD [address] [place] [place] [address] PCP - General 01/30/20
[2025-05-09 06:38] VITALS: BP 140/83; PULSE 81; RESP 20; TEMP 36.4; O2SAT 98; BMI 33.7
[2025-05-09] MEDS: LACTATED RINGERS 1,000 ML 150 ML IV CONT (06:41)
--- NOTE | 2025-05-09 06:49 | P.PNAN_ITS ---
Anes - Initial Pre Proc Eval Procedure: Operation Date: 05/09/25 08:00 Proposed Procedures p Screening Colonoscopy - David Powers MD Date/Time: 05/09/25 06:49 Surgeon: David Powers MD Pre Op Diagnosis: Personal history of colon polyps, unspecified Patient Data Age: 55 Gender: F Height: 1.7 m Weight: 97.8 kg Last Vital Signs Temp 36.4 C L 05/09/25 06:38 Pulse 81 05/09/25 06:38 Resp 20 05/09/25 06:38 BP 140/83 05/09/25 06:38 Pulse Ox 98 05/09/25 06:38 O2 Del Method Room Air 05/09/25 06:38 Allergies Allergy/AdvReac Type Severity Reaction Status Date / Time No Known Allergies Allergy Verified 05/09/25 06:37 Home Medications ?Medication ?Instructions ?Recorded ?Confirmed ?Type aspirin 81 mg chewable tablet 81 mg PO DAILY 06/01/23 05/09/25 History umeclidinium 62.5 mcg-vilanterol 1 inh inhalation SONNY Y #60 ea 09/21/23 05/09/25 Rx 25 mcg/actuation powdr for inhalation (Anoro Ellipta) baclofen 10 mg tablet 10 mg PO BID PRN muscle spas m #60 01/22/25 05/09/25 Rx tabs hydrochlorothiazide 12.5 mg tablet 12.5 mg PO DAILY #9 0 tabs 01/26/25 05/09/25 Rx lisinopril 40 mg tablet 40 mg PO DAILY #90 tabs 04/0505/09/25 Rx Patient hx anesthesia problems: none Family hx anesthesia problems: none Results Review: All pre-operative results and documents have been reviewed as part of the pre- operative evaluation. [facility] Past Medical History Medical History Colon cancer screening Vertigo Positive colorectal cancer screening using Cologuard test Mixed hyperlipidemia Lumbar back pain H/O: lung cancer Frequent UTI Chronic fatigue Essential hypertension Dysfunctional gallbladder COPD mixed type Chronic cholecystitis with calculus Biliary colic Acute cystitis without hematuria Eczema Anemia Anxiety Depression Arthritis Lung cancer Emphysema of lung COPD (chronic obstructive pulmonary disease) Hyperlipidemia HTN (hypertension) Vitamin D deficiency disease Surgical History Surgical History Previous section x2 H/O tubal ligation History of cholecystectomy History of lung surgery lower left lobectomy Family History Family History Sibling Family history of lung cancer, Onset Age: 50 DVT (deep venous thrombosis) Mother Family history of chronic obstructive pulmonary disease Other Diabetes mellitus Hypertension Social History Social History Social History: Smoking packs per day: 1 Smoking cigarettes per day: 20.0 Years smoked: 40 Smoking pack-years: 40.00 Smoking status: Current every day smoker Tobacco type: cigarettes Alcohol intake: current Alcohol use details: rare Substance use: never Substance use type: does not use Do You Feel Safe in your Home?: Yes Lack of Transportation: No Lack of Food: Never True Current Housing: I Have Housing Concerned About Future Housing: No Difficulty Paying Gas/Electric Bills: No Difficulty Paying for Meds: No Currently Unemployed: No Education: Associate Degree Difficulty w/ Childcare or Family Care: No Living arrangements: with family Occupation/Education: occupation Additional occupation/education comments: [employer] Gender identity (if verbalized by the patient): Female Sexual Orientation (if Verbalized by the Patient): Straight or Heterosexual Spiritual care concerns: No Anes - Eval Final PreProcedure Day of Procedure 05/09/25 06:49 Patient weight: obese Heart: regular rate and rhythm Lungs: clear to auscultation Airway: Mallampati scale class II Neurological: alert and oriented Last oral intake: >/= 8 hours ASA classification: III Emergent: no Anesthetic plan: proceed Anesthesia type and monitoring: general GIVS and standard monitoring Results Review: All pre-operative results and documents have been reviewed as part of the pre- operative evaluation. Informed Consent: The patient's anesthetic plan and its attendant risks and benefits were discussed with the patient/family/POA. Questions were solicited and answers provided to the satisfaction of the patient/family/POA.
--- NOTE | 2025-05-09 07:57 | PM.IMHP ---
H&P: HPI History of Present Illness Date/Time: 05/09/25 07:57 Chief Complaint: History of colon polyps Narrative: The patient has a history of colonic polyps, the last colonoscopy was in 2018. Her sister and mother had also colon polyps. Review of Systems Review of Systems: All systems reviewed & are unremarkable except as noted in HPI and below PMFSH Past Medical History Medical History Colon cancer screening Vertigo Positive colorectal cancer screening using Cologuard test Mixed hyperlipidemia Lumbar back pain H/O: lung cancer Frequent UTI Chronic fatigue Essential hypertension Dysfunctional gallbladder COPD mixed type Chronic cholecystitis with calculus Biliary colic Acute cystitis without hematuria Eczema Anemia Anxiety Depression Arthritis Lung cancer Emphysema of lung COPD (chronic obstructive pulmonary disease) Hyperlipidemia HTN (hypertension) Vitamin D deficiency disease Surgical History Surgical History Previous section x2 H/O tubal ligation History of cholecystectomy History of lung surgery lower left lobectomy Family History Family History Sibling Family history of lung cancer, Onset Age: 50 DVT (deep venous thrombosis) Mother Family history of chronic obstructive pulmonary disease Other Diabetes mellitus Hypertension Social History Social History Social History: Smoking packs per day: 1 Smoking cigarettes per day: 20.0 Years smoked: 40 Smoking pack-years: 40.00 Smoking status: Current every day smoker Tobacco type: cigarettes Alcohol intake: current Alcohol use details: rare Substance use: never Substance use type: does not use Do You Feel Safe in your Home?: Yes Lack of Transportation: No Lack of Food: Never True Current Housing: I Have Housing Concerned About Future Housing: No Difficulty Paying Gas/Electric Bills: No Difficulty Paying for Meds: No Currently Unemployed: No Education: Associate Degree Difficulty w/ Childcare or Family Care: No Living arrangements: with family Occupation/Education: occupation 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 Gender identity (if verbalized by the patient): Female Sexual Orientation (if Verbalized by the Patient): Straight or Heterosexual Spiritual care concerns: No Meds Home Medications and Allergies Home Medications ?Medication ?Instructions ?Recorded ?Confirmed ?Type aspirin 81 mg chewable tablet 81 mg PO DAILY 06/01/23 05/09/25 History umeclidinium 62.5 mcg-vilanterol 1 inh inhalation DAILY #60 ea 09/21/23 05/09/25 Rx 25 mcg/actuation powdr for inhalation (Anoro Ellipta) baclofen 10 mg tablet 10 mg PO BID PRN muscle spasm #60 01/22/25 05/09/25 Rx tabs hydrochlorothiazide 12.5 mg tablet 12.5 mg PO DAILY #90 tabs 01/26/25 05/09/25 Rx lisinopril 40 mg tablet 40 mg PO DAILY #90 tabs 04/30/25 05/09/25 Rx Allergies Allergy/AdvReac Type Severity Reaction Status Date / Time No Known Allergies Allergy Verified 05/09/25 06:37 Vital Signs Vital Signs - 24 hr 05/09/25 06:38 Temperature 97.5 F L Pulse Rate 81 Respiratory Rate 20 Blood Pressure 140/83 Pulse Oximetry 98 Oxygen Delivery Room Air Exam Const: General: cooperative and healthy appearing Resp: Effort & Inspection: normal respiratory effort and able to speak in complete sentences Auscultation: clear to auscultation bilaterally Cardio: Rate: regular rate Rhythm: regular rhythm GI: Inspection: normal to inspection GI Palp: No No hepatosplenomegaly present Auscultation: normal bowel sounds Rectal Exam: deferred Skin: General skin exam: normal color Psych: Appearance: grossly normal Mental Status: mental status grossly normal Assessment and Plan Assessment and plan (1) Colon polyps: Qualifiers: Colon polyp type: unspecified Colon location: unspecified part of colon Qualified Code(s): K63.5 - Polyp of colon Code(s): K63.5 - Polyp of colon Status: Acute Assessment and Plan: The patient is deemed a good candidate for the procedure. Consent signed. Will proceed.
--- NOTE | 2025-05-09 08:21 | SUR.OPER ---
Per Dr. Powers, ascending colon polyp seen by Dr. Powers but was then unable to visualize polyp due to poor prep. Ascending colon polyp not removed.
--- NOTE | 2025-05-09 08:28 | S_PTH ---
PATIENT: Jeanette Betancourt LOC: [facility] U#:[id number] AGE/SX: 55/F ROOM: RE05/09/[address]: David Powers MD : 1970 BED: DIS: 05/09/2025 SPEC #: [id number] RECD: 05/09/25 11:27 STATUS: FRANK REQ #: [id number] [place]: 05/09/25 08:[address]: David Powers DEPT: [facility] Surgical RECD BY: Melissa Cr ENTERED: 05/09/25 11:27 SP TYPE: Surgical OTHR DR: Rasta Kamara MD Tissues: A - Colon Polypectomy Procedures: Hematoxylin and Eosin Stain Gross and Microscopic Level 4
[2025-05-09 08:30] VITALS: BP 98/49; PULSE 71; RESP 19; O2SAT 98
[2025-05-09 08:40] VITALS: BP 114/62; PULSE 66; RESP 21; O2SAT 100
[2025-05-09 08:50] VITALS: BP 109/67; PULSE 68; RESP 19; O2SAT 100
== END 2025-05-09 08:52 | disposition home or self-care (01) ==
PROVIDERS: PCP Family Medicine; Referring Provider Student in an Organized Health Care Education/Training Program; Visit Provider Internal Medicine Gastroenterology
PROC: 0DJD8ZZ Inspection of Lower Intestinal Tract, Via Natural or Artificial Opening Endoscopic (ICD-10-PCS; CPT 45378; principal; 2025-05-09 08:00)
DX: Z12.11 Encounter for screening for malignant neoplasm of colon (principal); D12.2 Benign neoplasm of ascending colon; K63.5 Polyp of colon; K57.30 Diverticulosis of large intestine without perforation or abscess without bleeding; Q27.33 Arteriovenous malformation of digestive system vessel; I10 Essential (primary) hypertension; D64.9 Anemia, unspecified; F41.9 Anxiety disorder, unspecified; F32.A Depression, unspecified; J43.9 Emphysema, unspecified; E55.9 Vitamin D deficiency, unspecified; E78.2 Mixed hyperlipidemia; K82.8 Other specified diseases of gallbladder; R53.82 Chronic fatigue, unspecified; L30.9 Dermatitis, unspecified; M19.90 Unspecified osteoarthritis, unspecified site; F17.210 Nicotine dependence, cigarettes, uncomplicated; E66.9 Obesity, unspecified; Z68.33 Body mass index [BMI] 33.0-33.9, adult; Z79.82 Long term (current) use of aspirin; Z79.51 Long term (current) use of inhaled steroids; Z98.890 Other specified postprocedural states; Z98.51 Tubal ligation status; Z90.49 Acquired absence of other specified parts of digestive tract; Z90.2 Acquired absence of lung [part of]; Z85.118 Personal history of other malignant neoplasm of bronchus and lung; Z83.719 Family history of colon polyps, unspecified; Z80.1 Family history of malignant neoplasm of trachea, bronchus and lung
CPT/HCPCS: 45385; 88305; J2704; J7120